=== PATIENT | male | born 1970 | race Caucasian/White ===

== ENCOUNTER → 2017-09-29 | Outpatient (CLI) | payer OTHER ==
[2017-09-29 12:32] VITALS: BP 159/83; PULSE 83; RESP 18
--- NOTE | 2017-09-30 19:14 | P.CONS ---
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, currently on Neurontin and Motrin, and he was treated in the past with Percocet 7.5/325, and he reported that medication management is the only thing that could help his pain, patient denies any focal neurological deficit he denies any fever or night sweats Past Medical History Past Medical History: Pneumonia Additional Past Medical History / Comment(s): BRONCHIACTASIS, MASTOIDITIS, sick sinus syndrome,sinus problems History of Any Multi-Drug Resistant Organisms: None Reported Past Surgical History: Cholecystectomy, Hernia Repair, Orthopedic Surgery, Pacemaker Additional Past Surgical History / Comment(s): multiple knee scopes, umb hernia , had had 4 pacemaker sx;. polyp in throat removed 09/06/17 Past Anesthesia/Blood Transfusion Reactions: No Reported Reaction Type of Cardiac Device: Permanent Pacemaker Device Placement Date:: unk Past Psychological History: No Psychological Hx Reported Smoking Status: Current every day smoker Past Alcohol Use History: None Reported Additional Past Alcohol Use History / Comment(s): started smoking at age 17 down from 2ppd to 2-3 cig per day, declined smoking booklet is slowly quitting Past Drug Use History: None Reported - Past Family History Mother Family Medical History: Cancer Additional Family Medical History / Comment(s): cervical and anal cancer, osteoporosis Father History Unknown: Yes Additional Family Medical History / Comment(s): at age 26 pt not sure what cause was. Medications and Allergies Home Medications Medication Instructions Recorded Confirmed Type Albuterol Inhaler [Ventolin Hfa 1 puff INHALATION DAILY 09/29/17 09/29/17 History Inhaler] Budesonide/Formoterol Fumarate 2 puff INHALATION BID 09/29/17 09/29/17 History [Symbicort 160-4.5 Mcg Inhaler] Fluticasone Nasal [place] [Flonase 1 spray NASAL TID 09/29/17 09/29/17 History Nasal [place]] Furosemide [Lasix] 1 tab PO DAILY 09/29/17 09/29/17 History Gabapentin [Neurontin] 1 tab PO TID 09/29/17 09/29/17 History Ibuprofen [Motrin] 2 tab PO Q8H 09/29/17 09/29/17 History Ipratropium-Albuterol Nebulize 1 puff INHALATION Q2-3H 09/29/17 09/29/17 History [Duoneb 0.5 mg-3 mg/3 ml Soln] Potassium 1 tab PO DAILY 09/29/17 09/29/17 History Prednisolone Acetate/Nepafenac 1 drop BOTH EYES DAILY 09/29/17 09/29/17 History [Prednisolone 1%-Nepafenac 0.1%] Umeclidinium [place] [Incruse 1 puff INHALATION DAILY 09/29/17 09/29/17 History Ellipta] hydrOXYzine HCL 1 tab PO Q8HR 09/29/17 09/29/17 History predniSONE [predniSONE] 1 tab PO DAILY 09/29/17 09/29/17 History traMADol HCl [Ultram] 1 tab PO QID 09/29/17 09/29/17 History Allergies Allergy/AdvReac Type Severity Reaction Status Date / Time No Known Allergies Allergy Verified 09/29/17 12:22 Physical Exam Physical Examinations : 1-Constitutiona : Cooperative , not in acute distress . 2-HEENT : nech ; supple eyes : no ptosis , no icterus, no photophobia . ENT : normal of hearing , normal oropharynx , no Thrush . 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
== END | disposition home or self-care (01) ==
LOC: PNWHC3 11:47
PROVIDERS: ATTEND Specialist
DX: G89.4 Chronic pain syndrome (principal); H70.90 Unspecified mastoiditis, unspecified ear; Q79.4 Prune belly syndrome; J47.9 Bronchiectasis, uncomplicated; I49.5 Sick sinus syndrome; F17.200 Nicotine dependence, unspecified, uncomplicated; Z79.899 Other long term (current) drug therapy; Z79.1 Long term (current) use of non-steroidal anti-inflammatories (NSAID)
CPT/HCPCS: 99211

== ENCOUNTER 2019-01-26 16:52 | Inpatient (IN) | payer MEDICARE, OTHER ==
[2019-01-26] MEDS ORDERED: MORPHINE SULFATE 4 MG/ML SYRINGE IVP STA ×2 (17:41→19:28)
[2019-01-26] MEDS ORDERED: KETOROLAC 30 MG/ML 1 ML VIAL IVP STA (17:41)
--- NOTE | 2019-01-26 17:43 | ED ---
General Adult HPI - General Chief complaint: Recheck/Abnormal Lab/Rx Stated complaint: Infection Time Seen by Provider: 01/26/19 17:10 Source: patient Mode of arrival: ambulatory Limitations: no limitations - History of Present Illness Initial comments: 48-year-old male presenting with left finger wound. Patient states 3 weeks prior he woke up and blacked out with his finger that is now progressed. He states he has been on antibiotics the last 17 days. Those include Bactrim, Keflex, vancomycin, now daptomycin through PICC line in his right arm. He states he presented to Dr. johnson office today for worsening pain in the wound. He was sent here to be evaluated by Ortho hand. He characterizes the pain as now burning one prior which is throbbing. He denies any fevers chills or known injury to the hand. - Related Data Home Medications Medication Instructions Recorded Confirmed Albuterol Inhaler [Ventolin Hfa 1 puff INHALATION DAILY 09/29/17 01/26/19 Inhaler] Budesonide/Formoterol Fumarate 2 puff INHALATION BID 09/29/17 01/26/19 [Symbicort 160-4.5 Mcg Inhaler] DAPTOmycin [Cubicin] 500 mg IV DAILY@1200 01/26/19 01/26/19 Umeclidinium [place] [Incruse 1 puff INHALATION DAILY 01/26/19 01/26/19 Ellipta] Allergies Allergy/AdvReac Type Severity Reaction Status Date / Time No Known Allergies Allergy Verified 01/26/19 17:29 Review of Systems ROS Statement: Those systems with pertinent positive or pertinent negative responses have been documented in the HPI. Review of Systems Constitutional: Denies fever, chills Eyes: Denies change in vision, Denies pain Ears, nose, mouth, throat: Denies headaches, Denies sore throat Cardiovascular: Denies chest pain. Denies palpitations Respiratory: Denies shortness of breath, Denies cough Gastrointestinal: Denies abdominal pain. Denies nausea, vomiting, diarrhea. Genitourinary: Denies hematuria, Denies infections Musculoskeletal: Denies pain, Denies swelling Integumentary: Positive wound Neurological: Denies headache, focal weakness, focal numbness Psychiatric: Denies anxiety, Denies depression Hematologic/Lymphatic: Denies easy bleeding or bruising ROS Other: All systems not noted in ROS Statement are negative. Past Medical History Past Medical History: Pneumonia Additional Past Medical History / Comment(s): BRONCHIACTASIS, MASTOIDITIS, sick sinus syndrome,sinus problems History of Any Multi-Drug Resistant Organisms: None Reported Past Surgical History: Cholecystectomy, Hernia Repair, Orthopedic Surgery, Pacemaker Additional Past Surgical History / Comment(s): multiple knee scopes, umb hernia, had had 4 pacemaker sx;. polyp in throat removed 09/06/17 Past Anesthesia/Blood Transfusion Reactions: No Reported Reaction Type of Cardiac Device: Permanent Pacemaker Device Placement Date:: unk Past Psychological History: No Psychological Hx Reported Smoking Status: Current every day smoker Past Alcohol Use History: None Reported Past Drug Use History: None Reported - Past Family History Mother Family Medical History: Cancer Additional Family Medical History / Comment(s): cervical and anal cancer, oste oporosis Father History Unknown: Yes Additional Family Medical History / Comment(s): at age 26 pt not sure what cause was. General Exam - General Exam Comments Initial Comments: General: Awake, alert, No acute Distress HENT: Normocephalic. Atraumatic Eyes: PERRL. EOMI. No scleral icterus. No injected conjunctiva Neck: Full ROM Chest/Lungs: Clear to auscultation bilaterally. No wheezing, rhonchi, or rales Cardiac: Regular rate, rhythm. No murmurs or rubs Abdomen/GI: Soft, nontender, nondistended. No rebound, guarding, or rigidity. Musculoskeletal: Full ROM. Swelling to the left fifth finger Skin: Erythema and bruising to entire tip of left fifth finger with swelling extending down the finger itself, pain with movement, no purulent drainage. Tenderness along flexor tendon. Neurologic: A/Ox3, no weakness, no sensory deficit, no abnormal gait, no coordin ation deficit Limitations: no limitations Course Vital Signs 01/26/19 01/26/19 16:58 20:04 Temperature 98.3 F Pulse Rate 75 69 Respiratory 16 18 Rate Blood Pressure 130/84 122/61 O2 Sat by Pulse 99 98 Oximetry Medical Decision Making - Medical Decision Making 48-year-old male presenting with left fifth digit infection. Initial exam the p atient is awake, alert, no acute distress. VSS. Patient was sent emergency department by Dr. Carlin , infectious disease physician. Spoke with the admitting physician who is agreeable to plan of admitting the patient to the hospital to be seen by orthopedic hand and continuing his daptomycin. Patient currently stable for transfer to the floor. - Lab Data Result diagrams: 01/26/19 17:55 01/26/19 17:55 Lab Results 01/26/19 01/26/19 Range/Units 17:55 17:55 WBC 15.1 H (3.8-10.6) k/uL RBC 4.69 (4.30-5.90) m/uL Hgb 14.7 (13.0-17.5) gm/dL Hct 44.0 (39.0-53.0) % MCV 93.9 (80.0-100.0) fL MCH 31.3 (25.0-35.0) pg MCHC 33.3 (31.0-37.0) g/dL RDW 12.8 (11.5-15.5) % Plt Count 228 (150-450) k/uL Neutrophils % 72 % Lymphocytes % 18 % Monocytes % 6 % Eosinophils % 3 % Basophils % 1 % Neutrophils # 10.8 H (1.3-7.7) k/uL Lymphocytes # 2.6 (1.0-4.8) k/uL Monocytes # 0.9 (0-1.0) k/uL Eosinophils # 0.5 (0-0.7) k/uL Basophils # 0.1 (0-0.2) k/uL ESR 11 (0-15) mm/hr Sodium 141 (137-145) mmol/L Potassium 4.1 (3.5-5.1) mmol/L Chloride 109 H (98-107) mmol/L Carbon Dioxide 24 (22-30) mmol/L Anion Gap 8 mmol/L BUN 9 (9-20) mg/dL Creatinine 0.87 (0.66-1.25) mg/dL Est GFR (CKD-EPI)AfAm >90 (>60 ml/min/1.73 sqM) Est GFR (CKD-EPI)NonAf >90 (>60 ml/min/1.73 sqM) Glucose 94 (74-99) mg/dL Calcium 9.4 (8.4-10.2) mg/dL C-Reactive Protein 23.0 H (<10.0) mg/L Disposition Clinical Impression: Finger infection Disposition: ADMITTED IP TO THIS HOSP Is patient prescribed a controlled substance at d/c from ED?: No Decision to Admit Reason: Admit from EC Decision Date: 01/26/19 Decision Time: 18:50
[2019-01-26 18:17] LABS: Basophils # (A) 0.1 k/uL (0-0.2); Basophils % (A) 1 %; Eosinophils # (A) 0.5 k/uL (0-0.7); Eosinophils % (A) 3 %; HGB 14.7 gm/dL (13.0-17.5); Lymphocytes # (A) 2.6 k/uL (1.0-4.8); Lymphocytes % (A) 18 %; MCH 31.3 pg (25.0-35.0); MCHC 33.3 g/dL (31.0-37.0); MCV 93.9 fL (80.0-100.0); Mean Platelet Volume 8.1; Monocytes # (A) 0.9 k/uL (0-1.0); Monocytes % (A) 6 %; Neutrophils # (A) 10.8 k/uL (1.3-7.7); Neutrophils % (A) 72 %; Platelet Count 228 k/uL (150-450); RBC 4.69 m/uL (4.30-5.90); RDW 12.8 % (11.5-15.5); WBC 15.1 k/uL (3.8-10.6)
[2019-01-26 18:33] LABS: African American GFR (CKD) >90 (>60 ml/min/1.73 sqM); Anion Gap 8 mmol/L; Blood Urea Nitrogen 9 mg/dL (9-20); Calcium 9.4 mg/dL (8.4-10.2); Carbon Dioxide 24 mmol/L (22-30); Chloride 109 mmol/L (98-107); Glucose 94 mg/dL (74-99); Potassium 4.1 mmol/L (3.5-5.1); Sodium 141 mmol/L (137-145)
[2019-01-26] MEDS ORDERED: NALOXONE 0.4 MG/ML 1 ML VIAL IV PRN (18:43)
[2019-01-26 19:04] LABS: Erythrocyte Sedimentation Rate 11 mm/hr (0-15)
[2019-01-26] MEDS: SYMBICORT 160-4.5 MCG INHALER INHALATION SCH (22:12)
[2019-01-26] MEDS: MORPHINE SULFATE 4 MG/ML SYRINGE IV PRN (22:35)
[2019-01-27 00:39] VITALS: BMI 31.9
[2019-01-27] MEDS: MORPHINE SULFATE 4 MG/ML SYRINGE IV PRN ×5 (01:45→16:58)
[2019-01-27] MEDS: SYMBICORT 160-4.5 MCG INHALER INHALATION SCH ×2 (08:25→19:13)
[2019-01-27] MEDS: IPRATROPIUM-ALBUTEROL 3 ML NEB INHALATION SCH ×4 (08:26→19:13)
[2019-01-27] MEDS: ALBUTEROL NEBULIZED 2.5 MG/3 ML INHALATION SCH (08:28)
[2019-01-27] MEDS: DAPTOmycin 500 MG in SODIUM CHLORIDE 0.9% 50 ML IVPB SCH (11:15)
[2019-01-27] MEDS ORDERED: DAPTOmycin 500 MG VIAL IV SCH (12:00)
--- NOTE | 2019-01-27 17:39 | P.HPIM ---
History of Present Illness H&P Date: 01/27/19 Chief Complaint: Infected left index finger History of presenting complaint: This is a 48-year-old patient of Dr. Hendricks. Chronic stable medical conditions include chronic mastoiditis, permanent pacemaker for sick sinus syndrome, COPD from smoking. About 3 weeks ago patient woke up and felt what was like a mosquito bite on the tip of his index finger. This progressed become painful swollen went down to [facility]. It was incised. Sent home with antibiotics. It swelled up again. Patient went to his family doctor. It was again incised and patient was sent over Bactrim. It swelled of yet again. Patient went to [facility]. Admitted there for 3 days A PICC line and IV vancomycin was given. Patient seen by Dr. Carlin from [place]. It improved but yet again it has swollen up again's painful throbbing. No obvious fever no obvious chills. Patient seen by Dr. Carlin from [place] and sent him to be admitted. Orthopedics was also consulted from the ER. Review of systems: GEN.: None EYES: None HEENT: None NECK: None RESPIRATORY: Some wheezing and shortness of breath CARDIOVASCULAR: None GASTROINTESTINAL: None GENITOURINARY: None MUSCULOSKELETAL: As above LYMPHATICS: None HEMATOLOGICAL: None PSYCHIATRY: None NEUROLOGICAL: None Past medical history: Chronic mastoiditis, chronic sinusitis, sick sinus syndrome with a pacemaker, COPD Social history: Patient is . On disability. Now down to half a pack a day. Smoking for many years. No alcohol Family history: Cervical and anal cancer. Osteoporosis. Physical examination: VITAL SIGNS: 98.3, 75, 16, 130 Tessa 4, 99% room air GENERAL: BMI 32.5, sitting at edge to bed. EYES: Pupils equal. Conjunctiva normal. HEENT: External appearance of nose and ears normal, oral cavity grossly normal. NECK: JVD not raised; masses not palpable. HEART: First and second heart sounds are normal; no edema. LUNGS: Respiratory rate normal; decreased breath sounds, some wheezing. ABDOMEN: Soft, nontender, liver spleen not palpable, no masses palpable. PSYCH: Alert and oriented x3; mood and affect normal. NEUROLOGICAL: Cranial nerves grossly intact; no facial asymmetry, power and sensation grossly intact. LYMPHATICS: No lymph nodes palpable in the axilla and neck EXTREMITIES: Left hand distal index finger discolored tender red with some breakdown of skin, swollen INVESTIGATIONS, reviewed in the clinical context: White count 15.1, hemoglobin 40.7, potassium 4.1, creatinine 0.87 C-reactive protein 23 Assessment: -Left index finger, recurrent abscess with associated cellulitis, having failed outpatient incision and drainage at least 2 times and antibiotics. Patient will need repeat surgery and anesthesia and prolonged antibiotic treatment -Chronic mastoiditis -Chronic permanent pacemaker for sick sinus syndrome -COPD in a current smoker -Chronic nicotine dependence patient cigarette smoker Plan: ID Dr. Carlin was consulted. Orthopedics was consulted. Care was discussed with the patient. Patient will need to go to the OR for opening of the wound and drainage. Patient currently on daptomycin. Bronchodilators have been added. Smoke cessation counseling: This was done with the patient. Nicotine patch will be given. More than 3 minutes was spent on this.. Past Medical History Past Medical History: Pneumonia Additional Past Medical History / Comment(s): BRONCHIACTASIS, MASTOIDITIS, sick sinus syndrome,sinus problems History of Any Multi-Drug Resistant Organisms: None Reported Past Surgical History: Cholecystectomy, Hernia Repair, Orthopedic Surgery, Pacemaker Additional Past Surgical History / Comment(s): multiple knee scopes, umb hernia, had had 4 pacemaker sx;. polyp in throat removed 09/06/17 Past Anesthesia/Blood Transfusion Reactions: No Reported Reaction Type of Cardiac Device: Permanent Pacemaker Device Placement Date:: k Past Psychological History: No Psychological Hx Reported Smoking Status: Current every day smoker Past Alcohol Use History: None Reported Past Drug Use History: None Reported - Past Family History Mother Family Medical History: Cancer Additional Family Medical History / Comment(s): cervical and anal cancer, ost eoporosis Father History Unknown: Yes Additional Family Medical History / Comment(s): at age 26 pt not sure what cause was. Medications and Allergies Home Medications Medication Instructions Recorded Confirmed Type Albuterol Inhaler [Ventolin Hfa 1 puff INHALATION DAILY 09/29/17 01/26/19 History Inhaler] Budesonide/Formoterol Fumarate 2 puff INHALATION BID 09/29/17 01/26/19 History [Symbicort 160-4.5 Mcg Inhaler] DAPTOmycin [Cubicin] 500 mg IV DAILY@1200 01/26/19 01/26/19 History Umeclidinium [place] [Incruse 1 puff INHALATION DAILY 01/26/19 01/26/19 History Ellipta] Allergies Allergy/AdvReac Type Severity Reaction Status Date / Time No Known Allergies Allergy Verified 01/26/19 17:29 Physical Exam Vitals: Vital Signs Temp Pulse Pulse Resp BP BP Pulse Ox 01/27/19 04:40 97.8 F 73 20 102/64 97 01/26/19 22:20 98.3 F 75 20 138/67 97 01/26/19 20:04 69 18 122/61 98 01/26/19 16:58 98.3 F 75 16 130/84 99 Intake and Output 01/26/19 01/27/19 01/27/19 22:59 06:59 14:59 Intake Total 200 240 Balance 200 240 Intake: Oral 200 240 Other: # Voids 1 2 Weight 114.759 kg Results CBC & Chem 7: 01/26/19 17:55 01/26/19 17:55 Labs: Abnormal Lab Results - Last 24 Hours (Table) 01/26/19 01/26/19 Range/Units 17:55 17:55 WBC 15.1 H (3.8-10.6) k/uL Neutrophils # 10.8 H (1.3-7.7) k/uL Chloride 109 H (98-107) mmol/L C-Reactive Protein 23.0 H (<10.0) mg/L Thrombosis Risk Factor Assmnt - Choose All That Apply Any of the Below Risk Factors Present?: Yes Each Factor Represents 1 point: Age 41-60 years, Obesity (BMI >25) Other Risk Factors: No Thrombosis Risk Factor Assessment Total Risk Factor Score: 2 Thrombosis Risk Factor Assessment Level: Low Risk
--- NOTE | 2019-01-27 18:05 | P.CNOR ---
History of Present Illness - HPI Consult date: 01/27/19 Requesting physician: Durga Chavez Consult reason: other History of present illness: Patient is 48 year old male seen at bedside this afternoon, by Dr. Durga Chavez and myself, in consultation for left 5th finger infection. He states he has been dealing with an infection at the tip of his left little finger for a few weeks. He doesnt not recall an injury. He has been on various antibiotics and most recently followed By infectious disease where he has had a picc line in place for 10 days. He is receiving IV antibiotics currently. He denies worsening today. He has no fever or chills. He denies numbness or tingling. He is a smoker. Review of Systems All systems: negative Constitutional: Denies chills, Denies fever Eyes: denies blurred vision, denies pain Ears, nose, mouth and throat: Denies headache, Denies sore throat Cardiovascular: Denies chest pain, Denies shortness of breath Respiratory: Denies cough Gastrointestinal: Denies abdominal pain, Denies diarrhea, Denies nausea, Denies vomiting Musculoskeletal: Denies myalgias Integumentary: Denies pruritus, Denies rash Neurological: Denies numbness, Denies weakness Psychiatric: Denies anxiety, Denies depression Endocrine: Denies fatigue, Denies weight change Past Medical History Past Medical History: Pneumonia Additional Past Medical History / Comment(s): BRONCHIACTASIS, MASTOIDITIS, sick sinus syndrome,sinus problems History of Any Multi-Drug Resistant Organisms: None Reported Past Surgical History: Cholecystectomy, Hernia Repair, Orthopedic Surgery, Pacemaker Additional Past Surgical History / Comment(s): multiple knee scopes, umb hernia, had had 4 pacemaker sx;. polyp in throat removed 09/06/17 Past Anesthesia/Blood Transfusion Reactions: No Reported Reaction Type of Cardiac Device: Permanent Pacemaker Device Placement Date:: unk Past Psychological History: No Psychological Hx Reported Smoking Status: Current every day smoker Past Alcohol Use History: None Reported Past Drug Use History: None Reported - Past Family History Mother Family Medical History: Cancer Additional Family Medical History / Comment(s): cervical and anal cancer, osteoporosis Father History Unknown: Yes Additional Family Medical History / Comment(s): at age 26 pt not sure what cause was. Medications and Allergies Home Medications Medication Instructions Recorded Confirmed Type Albuterol Inhaler [Ventolin Hfa 1 puff INHALATION DAILY 09/29/17 01/26/19 History Inhaler] Budesonide/Formoterol Fumarate 2 puff INHALATION BID 09/29/17 01/26/19 History [Symbicort 160-4.5 Mcg Inhaler] DAPTOmycin [Cubicin] 500 mg IV DAILY@1200 01/26/19 01/26/19 History Umeclidinium [place] [Incruse 1 puff INHALATION DAILY 01/26/19 01/26/19 History Ellipta] Allergies Allergy/AdvReac Type Severity Reaction Status Date / Time No Known Allergies Allergy Verified 01/26/19 17:29 Physical Examination Inspection of the left hand shows a mild periungal hematoma with swelling about the distal left 5th digit. There is no ascending erythema. The is no active drainage. Motor and sensation is intact throughout the hand and digits. The pad is soft. Less than 2 sec cap refill is present. There is pain with passive ROM of the DIP and PIP. 2+ radial pulse is present. Results - Labs Labs: Abnormal Lab Results - Last 24 Hours (Table) 01/26/19 01/26/19 Range/Units 17:55 17:55 WBC 15.1 H (3.8-10.6) k/uL Neutrophils # 10.8 H (1.3-7.7) k/uL Chloride 109 H (98-107) mmol/L C-Reactive Protein 23.0 H (<10.0) mg/L H & H 01/26/19 Range/Units 17:55 Hgb 14.7 (13.0-17.5) gm/dL Hct 44.0 (39.0-53.0) % Result Diagrams: 01/26/19 17:55 01/26/19 17:55 Assessment and Plan (1) Finger infection Narrative/Plan: Patient has been seen by Dr. Durga Chavez. He has recommended warm soapy soaks and massaging the finger nail bed and distal finger. Continue IV antibiotics, elevation and advised him to stop smoking. We will recheck tomorrow and make further recommendations as appropriate. Current Visit: Yes Status: Acute Code(s): L08.9 - LOCAL INFECTION OF THE SKIN AND SUBCUTANEOUS TISSUE, UNSP SNOMED Code(s): 046489550 Time with Patient: Less than 30
[2019-01-27] MEDS: KETOROLAC 30 MG/ML 1 ML VIAL IVP PRN (19:15)
[2019-01-27] MEDS ORDERED: HYDROmorphone 0.5 MG/0.5 ML SYRINGE IVP PRN (19:56)
[2019-01-27] MEDS: HYDROmorphone 1 MG/ML 1 ML SYRINGE IVP PRN (20:14)
--- NOTE | 2019-01-27 23:20 | P.CONS ---
History of Present Illness - Reason for Consult Consult date: 01/27/19 Left fifth fingertip infection Requesting physician: Gonzalez Galloway - Chief Complaint Left fifth fingertip pain swelling redness x few weeks - History of Present Illness Patient is a 48-year-old male who did have a left fifth finger tip pain swelling and redness for the patient had did have a I&D done and to [facility] no cultures or antibiotics and subsequently at [facility] ER with no cultures, patient has been treated with orals Bactrim DS and Keflex without any improvement subsequently was admitted at [facility] and was treated with IV vancomycin patient did show some clinical improvement and during that admission refused any surgical drainage evident by orthopedics subsequently the patient did got a PICC line and was advised to daptomycin 5 mg daily now presenting for 2 weeks, the patient presented to the office yesterday with chief complaints of worsening pain swelling redness to the left fifth fingertip pain described to be throbbing midsternal a friend with no radiation with associated swelling redness on the tip of his left fifth finger with some discoloration patient be complaining of some purulent drainage, and was observed subsequently the patient was sent to [facility] ER to be admitted and evaluated by orthopedic surgery for possible drainage and deep cultures patient has been continued on IV daptomycin and infection disease was consulted for further recommendations regarding antibiotics Review of Systems Positive points has been mentioned in HPI rest of the systems are negative Past Medical History Past Medical History: Pneumonia Additional Past Medical History / Comment(s): BRONCHIACTASIS, MASTOIDITIS, sick sinus syndrome,sinus problems History of Any Multi-Drug Resistant Organisms: None Reported Past Surgical History: Cholecystectomy, Hernia Repair, Orthopedic Surgery, Pacemaker Additional Past Surgical History / Comment(s): multiple knee scopes, umb hernia, had had 4 pacemaker sx;. polyp in throat removed 09/06/17 Past Anesthesia/Blood Transfusion Reactions: No Reported Reaction Type of Cardiac Device: Permanent Pacemaker Device Placement Date:: unk Past Psychological History: No Psychological Hx Reported Smoking Status: Current every day smoker Past Alcohol Use History: None Reported Past Drug Use History: None Reported - Past Family History Mother Family Medical History: Cancer Additional Family Medical History / Comment(s): cervical and anal cancer, osteoporosis Father History Unknown: Yes Additional Family Medical History / Comment(s): at age 26 pt not sure what cause was. Medications and Allergies Home Medications Medication Instructions Recorded Confirmed Type Albuterol Inhaler [Ventolin Hfa 1 puff INHALATION DAILY 09/29/17 01/26/19 History Inhaler] Budesonide/Formoterol Fumarate 2 puff INHALATION BID 09/29/17 01/26/19 History [Symbicort 160-4.5 Mcg Inhaler] DAPTOmycin [Cubicin] 500 mg IV DAILY@1200 01/26/19 01/26/19 History Umeclidinium Kimberly [Incruse 1 puff INHALATION DAILY 01/26/19 01/26/19 History Ellipta] Allergies Allergy/AdvReac Type Severity Reaction Status Date / Time No Known Allergies Allergy Verified 01/26/19 17:29 Physical Exam Vitals: Vital Signs Temp Pulse Pulse Resp BP BP Pulse Ox 01/27/19 04:40 97.8 F 73 20 102/64 97 01/26/19 22:20 98.3 F 75 20 138/67 97 01/26/19 20:04 69 18 122/61 98 01/26/19 16:58 98.3 F 75 16 130/84 99 Intake and Output 01/26/19 01/27/19 01/27/19 22:59 06:59 14:59 Intake Total 200 240 Balance 200 240 Intake: Oral 200 240 Other: # Voids 1 Weight 114.759 kg GENERAL DESCRIPTION: Middle-aged male lying in bed, no distress. No tachypnea or accessory muscle of respiration use. HEENT: Shows Pallor , no scleral icterus. Oral mucous membrane is dry. No phar yngeal erythema or thrush NECK: Trachea central, no thyromegaly. LUNGS: Unlabored breathing. Clear to auscultation anteriorly. No wheeze or crackle. HEART: S1, S2, regular rate and rhythm. No loud murmur ABDOMEN: Soft, no tenderness , guarding or rigidity, no organomegaly EXTREMITIES: Left fifth finger tip did have a blood blister on the dorsum aspect at the base of the nail bed with no evidence of any drainage SKIN: No rash, no masses palpable. NEUROLOGICAL: The patient is awake, alert, oriented x3, mood and affect normal. Results CBC & Chem 7: 01/26/19 17:55 01/26/19 17:55 Labs: Abnormal Lab Results - Last 24 Hours (Table) 01/26/19 01/26/19 Range/Units 17:55 17:55 WBC 15.1 H (3.8-10.6) k/uL Neutrophils # 10.8 H (1.3-7.7) k/uL Chloride 109 H (98-107) mmol/L C-Reactive Protein 23.0 H (<10.0) mg/L Assessment and Plan Assessment: 1-patient with left fifth finger pain swelling redness/cellulitis and possible abscess that has been apparently drained twice with no cultures and did show some initial improvement on IV vancomycin now seem to have worsening despite being on good gram-positive coverage with daptomycin Plan: 1-await surgical I&D to be done by orthopedics and deep cultures 2-daptomycin 500 mg IV piggyback daily we will follow on clinical condition and culture to further adjust medication if needed Thank you for this consultation will follow this patient along with you Time with Patient: Greater than 30
[2019-01-28] MEDS: HYDROmorphone 1 MG/ML 1 ML SYRINGE IVP PRN ×6 (04:48→22:09)
[2019-01-28] MEDS: KETOROLAC 30 MG/ML 1 ML VIAL IVP PRN ×3 (08:07→22:09)
[2019-01-28] MEDS: SYMBICORT 160-4.5 MCG INHALER INHALATION SCH ×2 (08:23→20:20)
[2019-01-28] MEDS: ALBUTEROL NEBULIZED 2.5 MG/3 ML INHALATION SCH (08:30)
[2019-01-28] MEDS: IPRATROPIUM-ALBUTEROL 3 ML NEB INHALATION SCH ×4 (08:30→20:20)
--- NOTE | 2019-01-28 09:53 | P.PN ---
Subjective Progress Note Date: 01/28/19 Principal diagnosis: left finger infection Patient seen at bedside this am. We are following for left little finger infection. We advised to do warm soapy soaks and he was able to express some purulunce last evening. It is improved some today. No new complaints Objective - Vital Signs Vital signs: Vital Signs Temp 97.6 F 01/28/19 05:50 Pulse 52 L 01/28/19 05:50 Resp 16 01/28/19 05:50 BP 98/63 01/28/19 05:50 Pulse Ox 97 01/28/19 05:50 Intake & Output 01/27/19 01/28/19 01/28/19 18:59 06:59 18:59 Intake Total 240 240 Balance 240 240 Intake: Oral 240 240 Other: # Voids 2 1 - Exam Improved erythema, swelling and edema. No ascending erythema. NVI - Constitutional General appearance: Present: no acute distress - Labs CBC & Chem 7: 01/26/19 17:55 01/26/19 17:55 Labs: Microbiology - Last 24 Hours (Table) 01/27/19 17:00 Gram Stain - Preliminary Finger - Left Fifth Wound Culture - Preliminary 01/27/19 17:00 Anaerobic Culture - Preliminary Finger - Left Fifth 01/26/19 18:55 Blood Culture - Preliminary Blood No Growth after 24 hours Assessment and Plan (1) Finger infection Narrative/Plan: Continue warm soapy soaks and massaging the finger nail bed and distal finger. Continue IV antibiotics, elevation and advised him to stop smoking. We will continue to follow and make further recommendations as appropriate. Current Visit: Yes Status: Acute Code(s): L08.9 - LOCAL INFECTION OF THE SKIN AND SUBCUTANEOUS TISSUE, UNSP SNOMED Code(s): 343859778 Time with Patient: Less than 30
[2019-01-28] MEDS: DAPTOmycin 500 MG in SODIUM CHLORIDE 0.9% 50 ML IVPB SCH (12:48)
--- NOTE | 2019-01-28 14:09 | PN ---
PROGRESS NOTE DATE OF SERVICE: 01/28/2019. REASON FOR FOLLOWUP: Left little finger infection with cellulitis. INTERVAL HISTORY: The patient is afebrile. The patient did have spontaneous drainage of the left fifth finger tip abscess. The patient continues to complain of pain to the area. No nausea, no vomiting. No abdominal pain or any diarrhea. PHYSICAL EXAMINATION: Blood pressure is 98/63 with a pulse of 52, temperature 97.6. He is 97% on room air. General description is a middle-aged male up in the chair in no distress. RESPIRATORY SYSTEM: Unlabored breathing. Clear to auscultation anteriorly. HEART: S1, S2. Regular rate and rhythm. ABDOMEN: Soft. No tenderness. Left fifth finger tip has some swelling and redness. No drainage was noticed today. LABS: Cultures are currently pending. No CBC done today. DIAGNOSTIC IMPRESSION AND PLAN: Patient with a left fifth finger tip infection with concern for possible abscess. The patient may benefit from surgical I&D. Orthopedics has been contacted. Waiting for the call back. Continue with the daptomycin. Cultures will be followed. Continue with supportive care. MMODL / IJN: [id number] /
--- NOTE | 2019-01-28 16:30 | P.PN ---
Progress Note - Text Progress Note Date: 01/28/19 Chief Complaint: Infected left little finger History of presenting complaint: This is a 48-year-old patient of Dr. Hendricks. Chronic stable medical conditions include chronic mastoiditis, permanent pacemaker for sick sinus syndrome, COPD from smoking. About 3 weeks ago patient woke up and felt what was like a mosquito bite on the tip of his little finger. This progressed become painful swollen went down to [facility]. It was incised. Sent home with anti biotics. It swelled up again. Patient went to his family doctor. It was again incised and patient was sent over Bactrim. It swelled of yet again. Patient went to [facility]. Admitted there for 3 days A PICC line and IV vancomycin was given. Patient seen by Dr. Carlin from [place]. It improved but yet again it has swollen up again's painful throbbing. No obvious fever no obvious chills. Patient seen by Dr. Carlin from [place] and sent him to be admitted. Orthopedics was also consulted from the ER. Today-seen by ID. He will speak to orthopedics about possible I&D. Patient has pain of the affected finger. Did get some antibiotics pain medications and also soak in warm water. Review of systems: Was done for constitutional, cardiovascular, GI, pulmonary. Extremity relevant finding as above Active Medications Albuterol Sulfate (Ventolin Nebulized) 2.5 mg INHALATION RT-DAILY [facility] Last Admin: 01/28/19 08:30 Dose: Not Given Documented by: Albuterol/Ipratropium (Duoneb 0.5 Mg-3 Mg/3 Ml Soln) 3 ml INHALATION RT-QID [facility] Last Admin: 01/28/19 16:22 Dose: 3 ml Documented by: Budesonide/Formoterol Fumarate (Symbicort 160-4.5 Mcg Inhaler) 2 puff INHALATION RT-BID [facility] Last Admin: 01/28/19 08:23 Dose: 2 puff Documented by: Hydromorphone HCl (Dilaudid) 0.5 mg IVP Q3HR PRN PRN Reason: Pain Hydromorphone HCl (Dilaudid) 1 mg IVP Q3HR PRN PRN Reason: Pain Last Admin: 01/28/19 16:03 Dose: 1 mg Documented by: Daptomycin 500 mg/ Sodium (Chloride) 50 mls @ 100 mls/hr IVPB Q24H [facility] Last Admin: 01/28/19 12:48 Dose: 100 mls/hr Documented by: Ketorolac Tromethamine (Toradol) 15 mg IVP Q6HR PRN PRN Reason: Moderate Pain Stop: 01/31/19 18:44 Last Admin: 01/28/19 15:09 Dose: 15 mg Documented by: Naloxone HCl (Narcan) 0.2 mg IV Q2M PRN PRN Reason: Opioid Reversal Physical examination: VITAL SIGNS: 97.6, 52, 16, 98 x 63, 97% room air GENERAL: BMI 32.5, sitting at edge to bed. EYES: Pupils equal. Conjunctiva normal. HEENT: External appearance of nose and ears normal, oral cavity grossly normal. NECK: JVD not raised; masses not palpable. HEART: First and second heart sounds are normal; no edema. LUNGS: Respiratory rate normal; decreased breath sounds, some wheezing. ABDOMEN: Soft, nontender, liver spleen not palpable, no masses palpable. PSYCH: Alert and oriented x3; mood and affect normal. NEUROLOGICAL: Cranial nerves grossly intact; no facial asymmetry, power and sensation grossly intact. LYMPHATICS: No lymph nodes palpable in the axilla and neck EXTREMITIES: Left hand distal little finger discolored tender red with some breakdown of skin, swollen INVESTIGATIONS, reviewed in the clinical context: White count 15.1, hemoglobin 40.7, potassium 4.1, creatinine 0.87 C-reactive protein 23 Assessment: -Left little finger, recurrent abscess with associated cellulitis, having failed outpatient incision and drainage at least 2 times and antibiotics. Patient will need repeat surgery and anesthesia and prolonged antibiotic treatment -Chronic mastoiditis -Chronic permanent pacemaker for sick sinus syndrome -COPD in a current smoker -Chronic nicotine dependence patient cigarette smoker Plan: Discussed with Dr. Montero from ID. He will discuss with orthopedics reviewed to I&D. This was discussed with the patient. Question were answered. Continue current medication treatment plan.
[2019-01-29] MEDS: HYDROmorphone 1 MG/ML 1 ML SYRINGE IVP PRN ×7 (04:03→22:03)
[2019-01-29] MEDS: KETOROLAC 30 MG/ML 1 ML VIAL IVP PRN ×4 (04:04→22:10)
[2019-01-29] MEDS: IPRATROPIUM-ALBUTEROL 3 ML NEB INHALATION SCH ×4 (07:39→21:45)
[2019-01-29] MEDS: SYMBICORT 160-4.5 MCG INHALER INHALATION SCH ×2 (07:39→21:44)
[2019-01-29] MEDS: ALBUTEROL NEBULIZED 2.5 MG/3 ML INHALATION SCH (07:39)
[2019-01-29] MEDS ORDERED: LIDOCAINE 2% INJ 20 MG/ML (20 ML MDV) SQ ONE (10:00)
[2019-01-29] MEDS: DAPTOmycin 500 MG in SODIUM CHLORIDE 0.9% 50 ML IVPB SCH (11:06)
--- NOTE | 2019-01-29 11:06 | P.PN ---
Subjective Progress Note Date: 01/29/19 Principal diagnosis: left finger infection Patient seen at bedside this am. We are following for left little finger infection. We advised to do warm soapy soaks and he has been able to express some purulence. He doesn't feel it has improved today. He denies any new complaints.he denies fever or chills. Objective - Vital Signs Vital signs: Vital Signs Temp 97.7 F 01/29/19 04:41 Pulse 64 01/29/19 07:55 Resp 18 01/29/19 04:41 BP 134/86 01/29/19 04:41 Pulse Ox 98 01/29/19 04:41 Intake & Output 01/28/19 01/29/19 01/29/19 18:59 06:59 18:59 Intake Total 960 1180 Balance 960 1180 Intake: Oral 960 1180 Other: # Voids 2 1 - Exam There is continued erythema, swelling and edema at the distal portion of the left little finger. There is no active drainage. Neurovascular status is intact with motor and sensation throughout the finger however there is pain with minimal range of motion of the DIP, IP and MCP joints. Less than 1 second capillary refill is present. 2+ radial pulses present. There is no ascending erythema. - Constitutional General appearance: Present: no acute distress - Labs CBC & Chem 7: 01/26/19 17:55 01/26/19 17:55 Labs: Microbiology - Last 24 Hours (Table) 01/26/19 18:55 Blood Culture - Preliminary Blood No Growth after 48 hours Assessment and Plan (1) Finger infection Narrative/Plan: After obtaining informed consent, a decision was made to proceed with I&D at bedside. The left little finger was sterilely prepped with chlorhexidine solution,after which 10 cc of 2% plain lidocaine was injected about the finger w here both the medial and lateral digital nerves were blocked. Anesthesia of the finger was obtained. After which a horizontal incision was made along the lateral aspect of the distal phalanx superior to the nerve and vessels and deep to the bone. Subsequently a longitudinal incision was made at the fat pad of the distal phalanx and deep to the bone. These wounds were expressed where 2 separate cultures were obtained. The patient tolerated the procedure well without complication. He'll continue with warm soapy soaks. Continue with IV antibiotics per infectious disease and medical management. We will continue to follow and make further recommendations as appropriate. Continue warm soapy soaks and massaging the finger nail bed and distal finger. Continue elevation and smoking cessation. Current Visit: Yes Status: Acute Code(s): L08.9 - LOCAL INFECTION OF THE SKIN AND SUBCUTANEOUS TISSUE, UNSP SNOMED Code(s): 976599058 Time with Patient: Greater than 30 (procedure performed)
--- NOTE | 2019-01-29 16:19 | PN ---
PROGRESS NOTE DATE OF SERVICE: 01/29/2019 REASON FOR FOLLOWUP: Left fifth fingertip abscess and cellulitis. INTERVAL HISTORY: The patient is afebrile. The patient is status post bedside debridement of his left fifth fingertip by Orthopedics apparently it was mostly bloody, per the RN. However, the patient said there was pus as well. Culture of the drainage is currently pending. The patient has been complaining of pain, with some improvement with pain medication. No nausea, no vomiting, no abdominal pain, no diarrhea. PHYSICAL EXAMINATION: Blood pressure 104/68 with a pulse of 71, temperature 97.6. He is 97% on room air. General description is a middle-aged male up in the bed in no distress. RESPIRATORY SYSTEM: Unlabored breathing. Clear to auscultation anteriorly. HEART: S1, S2. Regular rate and rhythm. ABDOMEN: Soft. No tenderness. Left fingertip is currently dressed up. No obvious drainage on the dressing. DIAGNOSTIC IMPRESSION AND PLAN: Patient with left fifth fingertip abscess and cellulitis that had been drained in the outpatient setting, after which no cultures were done. Patient has been on daptomycin, without significant improvement and had to be admitted to the hospital. We are waiting for the cultures that were done today to determine his discharge antibiotics. Continue with daptomycin while he is here in the hospital. Continue with supportive care. MMODL / IJN: [id number] /
--- NOTE | 2019-01-29 19:28 | P.PN ---
Progress Note - Text Progress Note Date: 01/29/19 Chief Complaint: Infected left little finger Interval history: This is a 48-year-old patient of Dr. Hendricks. Chronic stable medical conditions include chronic mastoiditis, permanent pacemaker for sick sinus syndrome, COPD from smoking. About 3 weeks ago patient woke up and felt what was like a mosquito bite on the tip of his little finger. This progressed become painful swollen went down to [facility]. It was incised. Sent home with antibiotics. It swelled up again. Patient went to his family doctor. It was again incised and patient was sent over Bactrim. It swelled of yet again. Patient went to [facility]. Admitted there for 3 days A PICC line and IV vancomycin was given. Patient seen by Dr. Carlin from [place]. It improved but yet again it has swollen up again's painful throbbing. No obvious fever no obvious chills. Patient seen by Dr. Carlin from [place] and sent him to be admitted. Today-earlier today, PA from orthopedics did carry out bedside incision and drainage. Warm water soaking was done for that. Cultures are pending. Review of systems: Was done for constitutional, cardiovascular, GI, pulmonary. Extremity relevant finding as above Active Medications Albuterol Sulfate (Ventolin Nebulized) 2.5 mg INHALATION RT-DAILY [facility] Last Admin: 01/29/19 07:39 Dose: 2.5 mg Documented by: Albuterol/Ipratropium (Duoneb 0.5 Mg-3 Mg/3 Ml Soln) 3 ml INHALATION RT-QID [facility] Last Admin: 01/29/19 16:11 Dose: 3 ml Documented by: Budesonide/Formoterol Fumarate (Symbicort 160-4.5 Mcg Inhaler) 2 puff INHALATION RT-BID [facility] Last Admin: 01/29/19 07:39 Dose: 2 puff Documented by: Hydromorphone HCl (Dilaudid) 0.5 mg IVP Q3HR PRN PRN Reason: Pain Hydromorphone HCl (Dilaudid) 1 mg IVP Q3HR PRN PRN Reason: Pain Last Admin: 01/29/19 19:13 Dose: 1 mg Documented by: Daptomycin 500 mg/ Sodium (Chloride) 50 mls @ 100 mls/hr IVPB Q24H [facility] Last Admin: 01/29/19 11:06 Dose: 100 mls/hr Documented by: Ketorolac Tromethamine (Toradol) 15 mg IVP Q6HR PRN PRN Reason: Moderate Pain Stop: 01/31/19 18:44 Last Admin: 01/29/19 15:49 Dose: 15 mg Documented by: Naloxone HCl (Narcan) 0.2 mg IV Q2M PRN PRN Reason: Opioid Reversal Physical examination: VITAL SIGNS: 97.6, 71, 17, 104/68, 97% room air GENERAL: Sitting at the edge of bed, soaking his finger.. EYES: Pupils equal. Conjunctiva normal. HEENT: External appearance of nose and ears normal, oral cavity grossly normal. NECK: JVD not raised; masses not palpable. HEART: First and second heart sounds are normal; no edema. LUNGS: Respiratory rate normal; decreased breath sounds, some wheezing. ABDOMEN: Soft, nontender, liver spleen not palpable, no masses palpable. PSYCH: Alert and oriented x3; mood and affect normal. EXTREMITIES: Left hand distal little finger discolored tender red with some breakdown of skin, swollen INVESTIGATIONS, reviewed in the clinical context: Cultures pending No labs from today C-reactive protein 23 Assessment: -Left little finger, recurrent abscess with associated cellulitis, having failed outpatient incision and drainage at least 2 times and antibiotics. Repeat I&D done today on January 29 at bedside -Chronic mastoiditis -Chronic permanent pacemaker for sick sinus syndrome -COPD in a current smoker -Chronic nicotine dependence patient cigarette smoker Plan: Discussed with Dr. carlin from [place]. Continue current medication treatment plan. Await culture results. Discussed with the patient.
[2019-01-30] MEDS: HYDROmorphone 1 MG/ML 1 ML SYRINGE IVP PRN ×7 (00:57→21:08)
[2019-01-30] MEDS: KETOROLAC 30 MG/ML 1 ML VIAL IVP PRN ×3 (04:15→17:28)
[2019-01-30 06:43] LABS: Basophils # (A) 0.1 k/uL (0-0.2); Basophils % (A) 1 %; Eosinophils # (A) 0.3 k/uL (0-0.7); Eosinophils % (A) 4 %; HCT 42.4 % (39.0-53.0); HGB 13.9 gm/dL (13.0-17.5); Lymphocytes # (A) 1.8 k/uL (1.0-4.8); Lymphocytes % (A) 20 %; MCH 31.1 pg (25.0-35.0); MCHC 32.9 g/dL (31.0-37.0); MCV 94.6 fL (80.0-100.0); Mean Platelet Volume 7.9; Monocytes # (A) 0.7 k/uL (0-1.0); Monocytes % (A) 8 %; Neutrophils # (A) 5.8 k/uL (1.3-7.7); Neutrophils % (A) 66 %; Platelet Count 226 k/uL (150-450); RBC 4.48 m/uL (4.30-5.90); RDW 12.8 % (11.5-15.5); WBC 8.8 k/uL (3.8-10.6)
[2019-01-30 06:59] LABS: African American GFR (CKD) >90 (>60 ml/min/1.73 sqM); Anion Gap 8 mmol/L; Blood Urea Nitrogen 10 mg/dL (9-20); Calcium 9.5 mg/dL (8.4-10.2); Carbon Dioxide 25 mmol/L (22-30); Chloride 107 mmol/L (98-107); Glucose 104 mg/dL (74-99); Potassium 4.7 mmol/L (3.5-5.1); Sodium 140 mmol/L (137-145)
[2019-01-30] MEDS: IPRATROPIUM-ALBUTEROL 3 ML NEB INHALATION SCH ×4 (08:15→20:12)
[2019-01-30] MEDS: SYMBICORT 160-4.5 MCG INHALER INHALATION SCH ×2 (08:15→20:12)
[2019-01-30] MEDS: ALBUTEROL NEBULIZED 2.5 MG/3 ML INHALATION SCH (08:15)
--- NOTE | 2019-01-30 09:58 | P.PN ---
<StephennoaChristina More - Last Filed: 01/30/19 10:54> Subjective Progress Note Date: 01/30/19 Principal diagnosis: Left little finger infection The patient is a 48-year-old male who we've been following for a left little finger infection. The finger was opened at the bedside yesterday and he was in structed to continue warm soaks. The patient appears to be aggravated today because he thinks his finger has not improved since yesterday. He states that the redness and swelling is worse in the finger is "filling back up again." He is currently receiving daptomycin via PICC line and infectious diseases following closely. Cultures are currently pending. Gram stain was negative for organisms. The patient denies fever, chills, rigors, shortness of breath, and chest pain today. Objective - Vital Signs Vital signs: Vital Signs Temp 97.8 F 01/30/19 04:40 Pulse 70 01/30/19 04:40 Resp 18 01/30/19 04:40 BP 110/51 01/30/19 04:40 Pulse Ox 97 01/30/19 04:40 Intake & Output 01/29/19 01/30/19 01/30/19 18:59 06:59 18:59 Intake Total 2020 Balance 2020 Intake: Oral 2020 Other: # Voids 2 2 - Exam The patient is a 48-year-old male who is in no acute distress. He is alert and oriented 3. Exam of the left little finger reveals erythema and swelling to the distal aspect of the finger proximal to the proximal nail bed. There is no active drainage. The 2 incision sites are scabbed over. There is stiffness to the DIP, PIP, and then MCP joints due to pain. Neurological and circulatory status is intact. - Labs CBC & Chem 7: 01/30/19 06:15 01/30/19 06:15 Labs: Abnormal Lab Results - Last 24 Hours (Table) 01/30/19 Range/Units 06:15 Glucose 104 H (74-99) mg/dL Microbiology - Last 24 Hours (Table) 01/29/19 10:25 Gram Stain - Preliminary Finger - Left Fifth Wound Culture - Preliminary 01/27/19 17:00 Anaerobic Culture - Preliminary Finger - Left Fifth 01/26/19 18:55 Blood Culture - Preliminary Blood No Growth after 72 hours 01/27/19 17:00 Gram Stain - Final Finger - Left Fifth Wound Culture - Final Assessment and Plan (1) Finger infection Current Visit: Yes Status: Acute Code(s): L08.9 - LOCAL INFECTION OF THE SKIN AND SUBCUTANEOUS TISSUE, UNSP SNOMED Code(s): 117671954 Plan: The clinical and culture findings were discussed with the patient. Continue IV antibiotics per infectious disease. The patient will be evaluated by Dr. Berg today to give further recommendations. <Shashi Berg - Last Filed: 01/30/19 12:10> Objective - Vital Signs Vital signs: Vital Signs Temp 97.8 F 01/30/19 04:40 Pulse 70 01/30/19 08:00 Resp 18 01/30/19 08:00 BP 110/51 01/30/19 04:40 Pulse Ox 97 01/30/19 04:40 Intake & Output 01/29/19 01/30/19 01/30/19 18:59 06:59 18:59 Intake Total 2019 Balance 2019 Intake: Oral 2019 Other: # Voids 2 2 - Labs CBC & Chem 7: 01/30/19 06:15 01/30/19 06:15 Labs: Abnormal Lab Results - Last 24 Hours (Table) 01/30/19 Range/Units 06:15 Glucose 104 H (74-99) mg/dL Microbiology - Last 24 Hours (Table) 01/29/19 10:25 Gram Stain - Preliminary Finger - Left Fifth Wound Culture - Preliminary 01/27/19 17:00 Anaerobic Culture - Preliminary Finger - Left Fifth 01/26/19 18:55 Blood Culture - Preliminary Blood No Growth after 72 hours 01/27/19 17:00 Gram Stain - Final Finger - Left Fifth Wound Culture - Final Assessment and Plan Plan: Discussed with REGLA Wilson and agree with above. Patient was subsequently seen and examined by myself as well. S: He's very frustrated with the clinical progress of his finger. He said it had been "lanced" 3 times before yesterday and has little hope that it will get better. He admits that yesterday's procedure was the most extensive. He has had substantial difficulty moving the finger due to the pain and is preferentially avoided any use of it. O: Left small finger: Scabbed over incisions along the ulnar nail fold and midline longitudinal incision in the pulp. No drainage. Focal subcutaneous fluid collection under the eponychial and ulnar nail fold. The pulp is bulbous but not discretely fluctuant. It is tender but fairly soft. He is very guarded on exam with any palpation distally only mild tenderness with palpation along the volar and dorsal aspects of the middle phalanx or passive PIP or MCP motion. A: 1. Subacute paronychia/eponychia 2. Nicotine addiction P: I discussed the clinical findings in detail with the patient. I explained that these infections sometimes have a protracted recovery course. I recommended a period of observation to see how finger response to the most recent debridement. Recommended starting warm water soaks with dilute Betadine or peroxide. The patient already has a PICC line and established IV antibiotics set up and would like to go home. I feel this is appropriate. He was encouraged to continue using it and removing as much as possible. He should follow up outpatient and was instructed to call the office for an appointment next week. He expressed understanding and was in agreement with this plan Shashi Berg D.O. [facility]
[2019-01-30] MEDS: DAPTOmycin 500 MG in SODIUM CHLORIDE 0.9% 50 ML IVPB SCH (10:59)
--- NOTE | 2019-01-30 15:46 | P.PN ---
Progress Note - Text Progress Note Date: 01/30/19 Chief Complaint: Infected left little finger Interval history: This is a 48-year-old patient of Dr. Hendricks. Chronic stable medical conditions include chronic mastoiditis, permanent pacemaker for sick sinus syndrome, COPD from smoking. About 3 weeks ago patient woke up and felt what was like a mosquito bite on the tip of his little finger. This progressed become painful swollen went down to [facility]. It was incised. Sent home with antibiotics. It swelled up again. Patient went to his family doctor. It was again incised and patient was sent over Bactrim. It swelled of yet again. Patient went to [facility]. Admitted there for 3 days A PICC line and IV vancomycin was given. Patient seen by Dr. Carlin from OR. It improved but yet again it has swollen up again's painful throbbing. No obvious fever no obvious chills. Patient seen by Dr. Carlin from OR and sent him to be admitted. Today-pain swelling present left little finger. Some improvement. No fever no chills. Cultures are negative to now. Review of systems: Was done for constitutional, cardiovascular, GI, pulmonary. Extremity relevant finding as above Active Medications Albuterol Sulfate (Ventolin Nebulized) 2.5 mg INHALATION RT-DAILY [facility] Last Admin: 01/29/19 07:39 Dose: 2.5 mg Documented by: Albuterol/Ipratropium (Duoneb 0.5 Mg-3 Mg/3 Ml Soln) 3 ml INHALATION RT-QID [facility] Last Admin: 01/29/19 16:11 Dose: 3 ml Documented by: Budesonide/Formoterol Fumarate (Symbicort 160-4.5 Mcg Inhaler) 2 puff INHALATION RT-BID [facility] Last Admin: 01/29/19 07:39 Dose: 2 puff Documented by: Hydromorphone HCl (Dilaudid) 0.5 mg IVP Q3HR PRN PRN Reason: Pain Hydromorphone HCl (Dilaudid) 1 mg IVP Q3HR PRN PRN Reason: Pain Last Admin: 01/29/19 19:13 Dose: 1 mg Documented by: Daptomycin 500 mg/ Sodium (Chloride) 50 mls @ 100 mls/hr IVPB Q24H [facility] Last Admin: 01/29/19 11:06 Dose: 100 mls/hr Documented by: Ketorolac Tromethamine (Toradol) 15 mg IVP Q6HR PRN PRN Reason: Moderate Pain Stop: 01/31/19 18:44 Last Admin: 01/29/19 15:49 Dose: 15 mg Documented by: Naloxone HCl (Narcan) 0.2 mg IV Q2M PRN PRN Reason: Opioid Reversal Physical examination: VITAL SIGNS: 98, 71, 17, 118/67, 97% room air GENERAL: Sitting at the edge of bed, comfortable EYES: Pupils equal. Conjunctiva normal. HEENT: External appearance of nose and ears normal, oral cavity grossly normal. NECK: JVD not raised; masses not palpable. HEART: First and second heart sounds are normal; no edema. LUNGS: Respiratory rate normal; decreased breath sounds, some wheezing. ABDOMEN: Soft, nontender, liver spleen not palpable, no masses palpable. PSYCH: Alert and oriented x3; mood and affect normal. EXTREMITIES: Left hand distal little finger discolored tender red with some breakdown of skin, swollen INVESTIGATIONS, reviewed in the clinical context: White count 8.8 potassium 4.7 Previous labs Cultures pending C-reactive protein 23 Assessment: -Left little finger, recurrent abscess with associated cellulitis, having failed outpatient incision and drainage at least 2 times and antibiotics. Repeat I&D done on January 29 at bedside -Chronic mastoiditis -Chronic permanent pacemaker for sick sinus syndrome -COPD in a current smoker -Chronic nicotine dependence patient cigarette smoker Plan: Discussed with Dr. Montero from ID on the phone. We agree that he to continue the antibiotics and take a final determination tomorrow or by Friday to see if further open 90 has to be carried out on not. This was discussed with the patient. Continue current antibiotics.
[2019-01-31] MEDS: HYDROmorphone 1 MG/ML 1 ML SYRINGE IVP PRN ×7 (03:30→22:44)
[2019-01-31] MEDS: KETOROLAC 30 MG/ML 1 ML VIAL IVP PRN ×3 (03:30→16:39)
[2019-01-31] MEDS: SYMBICORT 160-4.5 MCG INHALER INHALATION SCH ×2 (07:50→20:02)
[2019-01-31] MEDS: ALBUTEROL NEBULIZED 2.5 MG/3 ML INHALATION SCH (07:50)
[2019-01-31] MEDS: IPRATROPIUM-ALBUTEROL 3 ML NEB INHALATION SCH ×4 (08:05→20:02)
--- NOTE | 2019-01-31 09:52 | P.PN ---
Subjective Progress Note Date: 01/31/19 Principal diagnosis: Left little finger infection The patient is a 48-year-old male who we've been following for a left little finger infection. The finger was opened at the bedside on Friday and he was instructed to continue warm soaks. We changed to soaks to q2 hours with be tadine yesterday. He has been working on ROM of the finger as well. He states that the redness and swelling continues to worsen and the finger is "filling back up again." He is currently receiving daptomycin via PICC line and infectious diseases following closely. Cultures are currently negative. Gram stain was negative for organisms. The patient denies fever, chills, rigors, shortness of breath, and chest pain today. Objective - Vital Signs Vital signs: Vital Signs Temp 98.3 F 01/31/19 05:00 Pulse 60 01/31/19 08:06 Resp 16 01/31/19 05:00 BP 100/62 01/31/19 05:00 Pulse Ox 91 L 01/31/19 05:00 Intake & Output 01/30/19 01/31/19 01/31/19 18:59 06:59 18:59 Intake Total 1130 2190 Balance 1130 2190 Intake: Intake, IV Titration 50 Amount DAPTOmycin 500 mg In 50 Sodium Chloride 0.9% 50 ml @ 100 mls/hr IVPB Q24H [facility] Rx#:[id number] Oral 1080 2190 Other: # Voids 3 2 - Exam The patient is a 48-year-old male who is in no acute distress. He is alert and oriented 3. Exam of the left little finger reveals erythema and swelling to the distal aspect of the finger proximal to the proximal nail bed. There is no active drainage. The 2 incision sites are scabbed over. There is stiffness to the DIP, PIP, and then MCP joints due to pain. Neurological and circulatory status is intact. - Labs CBC & Chem 7: 01/30/19 06:15 01/30/19 06:15 Labs: Microbiology - Last 24 Hours (Table) 01/26/19 18:55 Blood Culture - Preliminary Blood No Growth after 96 hours 01/29/19 10:25 Gram Stain - Preliminary Finger - Left Fifth Wound Culture - Preliminary Assessment and Plan (1) Finger infection Current Visit: Yes Status: Acute Code(s): L08.9 - LOCAL INFECTION OF THE SKIN AND SUBCUTANEOUS TISSUE, UNSP SNOMED Code(s): 640573270 Plan: The clinical and culture findings were discussed with the patient. Continue IV antibiotics per infectious disease. Continue warm water and betadine soaks every 2 hours and work on ROM of the finger. We will await infectious disease recommendations today. We will continue to follow the patient closely.
[2019-01-31] MEDS: DAPTOmycin 500 MG in SODIUM CHLORIDE 0.9% 50 ML IVPB SCH (12:42)
--- NOTE | 2019-01-31 15:33 | P.PN ---
Progress Note - Text Progress Note Date: 01/31/19 Chief Complaint: Infected left little finger Interval history: This is a 48-year-old patient of Dr. Hendricks. Chronic stable medical conditions include chronic mastoiditis, permanent pacemaker for sick sinus syndrome, COPD from smoking. About 3 weeks ago patient woke up and felt what was like a mosquito bite on the tip of his little finger. This progressed become painful swollen went down to [facility]. It was incised. Sent home with antibiotics. It swelled up again. Patient went to his family doctor. It was again incised and patient was sent over Bactrim. It swelled of yet again. Patient went to [facility]. Admitted there for 3 days A PICC line and IV vancomycin was given. Patient seen by Dr. Carlin from ID. It improved but yet again it has swollen up again's painful throbbing. No obvious fever no obvious chills. Patient seen by Dr. Carlin from ID and sent him to be admitted. Today-still having significant swelling discoloration of the left little finger. Getting antibiotics. Being followed by ID and surgery.. Review of systems: Was done for constitutional, cardiovascular, GI, pulmonary. Extremity, relevant finding as above Active Medications Albuterol Sulfate (Ventolin Nebulized) 2.5 mg INHALATION RT-DAILY [facility] Last Admin: 01/31/19 07:50 Dose: 2.5 mg Documented by: Albuterol/Ipratropium (Duoneb 0.5 Mg-3 Mg/3 Ml Soln) 3 ml INHALATION RT-QID [facility] Last Admin: 01/31/19 14:53 Dose: 3 ml Documented by: Budesonide/Formoterol Fumarate (Symbicort 160-4.5 Mcg Inhaler) 2 puff INHALATION RT-BID [facility] Last Admin: 01/31/19 07:50 Dose: 2 puff Documented by: Hydromorphone HCl (Dilaudid) 0.5 mg IVP Q3HR PRN PRN Reason: Pain Hydromorphone HCl (Dilaudid) 1 mg IVP Q3HR PRN PRN Reason: Pain Last Admin: 01/31/19 13:38 Dose: 1 mg Documented by: Daptomycin 500 mg/ Sodium (Chloride) 50 mls @ 100 mls/hr IVPB Q24H [facility] Last Admin: 01/31/19 12:42 Dose: 100 mls/hr Documented by: Ketorolac Tromethamine (Toradol) 15 mg IVP Q6HR PRN PRN Reason: Moderate Pain Stop: 01/31/19 18:44 Last Admin: 01/31/19 10:15 Dose: 15 mg Documented by: Naloxone HCl (Narcan) 0.2 mg IV Q2M PRN PRN Reason: Opioid Reversal Physical examination: VITAL SIGNS: 98.1, 64, 16, 131 x 77, 98% room air GENERAL: Sitting up EYES: Pupils equal. Conjunctiva normal. HEENT: External appearance of nose and ears normal, oral cavity grossly normal. NECK: JVD not raised; masses not palpable. HEART: First and second heart sounds are normal; no edema. LUNGS: Respiratory rate normal; decreased breath sounds, some wheezing. ABDOMEN: Soft, nontender, liver spleen not palpable, no masses palpable. PSYCH: Alert and oriented x3; mood and affect normal. EXTREMITIES: Left hand distal little finger discolored tender red with some breakdown of skin, swollen INVESTIGATIONS, reviewed in the clinical context: No labs from today Previous labs Cultures negative C-reactive protein 23 Assessment: -Left little finger, recurrent abscess with associated cellulitis, having failed outpatient incision and drainage at least 2 times and antibiotics. Repeat I&D done on January 29 at bedside, still slow to respond -Chronic mastoiditis -Chronic permanent pacemaker for sick sinus syndrome -COPD in a current smoker -Chronic nicotine dependence patient cigarette smoker Plan: Continue the antibiotics. We'll await further input from ID and surgery. Patient may still benefit from taken to the OR under anesthesia and for the washing of the joint and distal finger carried out.
--- NOTE | 2019-02-01 00:05 | PN ---
PROGRESS NOTE DATE OF SERVICE: 01/31/2019. REASON FOR FOLLOWUP: Left 5th fingertip infection. INTERVAL HISTORY: The patient is currently afebrile. The patient continues to complain of pain to the left 5th fingertip area. Complaining of to be throbbing and hard for him even to soak it in the washroom. The patient did say that he did have some occasional drainage, but then it fills up right away. No chest pain, shortness of breath or cough. No abdominal pain. No diarrhea. PHYSICAL EXAMINATION: Blood pressure 107/68 with a pulse of 75, temperature 98.2. He is 97% on room air; General description is a middle aged male up in the bed in no distress. Respiratory system: Unlabored breathing. Clear to auscultation anteriorly. Heart S1, S2. Regular rate and rhythm. Abdomen soft. No tenderness. Left 5th fingertip, mostly swelling and redness at the base of the nail. No drainage was noticed. LABS: White count is 8.8, creatinine is 1.2. The 01/27 and 01/29 culture has been negative so far. DIAGNOSTIC IMPRESSION AND PLAN: Patient with left 5th fingertip abscess and cellulitis failing outpatient therapy, status post bedside debridement x3. The patient may benefit from OR drainage and deep cultures. Continue with empiric daptomycin. Monitor clinical course closely. Continue supportive care. MMODL / IJN: [id number] /
[2019-02-01] MEDS: HYDROmorphone 1 MG/ML 1 ML SYRINGE IVP PRN ×7 (01:49→23:30)
[2019-02-01] MEDS: ALBUTEROL NEBULIZED 2.5 MG/3 ML INHALATION SCH (08:21)
[2019-02-01] MEDS: SYMBICORT 160-4.5 MCG INHALER INHALATION SCH ×2 (08:21→20:39)
[2019-02-01] MEDS: IPRATROPIUM-ALBUTEROL 3 ML NEB INHALATION SCH ×4 (08:32→20:40)
--- NOTE | 2019-02-01 09:30 | P.PN ---
<StephennoaChristina More - Last Filed: 02/01/19 12:15> Subjective Progress Note Date: 02/01/19 Principal diagnosis: Left little finger infection The patient is a 48-year-old male who we've been following for a left little finger infection. The finger was opened at the bedside on Friday and he was in structed to continue warm soaks. We changed to soaks to q2 hours with betadine yesterday. He has been working on ROM of the finger as well. He states that the redness and swelling continues to worsen and the finger keep "filling back up again." He is currently receiving daptomycin via PICC line and infectious diseases following closely. Cultures are currently negative. The patient denies fever, chills, rigors, shortness of breath, and chest pain today. Objective - Vital Signs Vital signs: Vital Signs Temp 97.8 F 02/01/19 05:00 Pulse 80 02/01/19 08:32 Resp 16 02/01/19 05:00 BP 129/72 02/01/19 05:00 Pulse Ox 99 02/01/19 05:00 Intake & Output 01/31/19 02/01/19 02/01/19 18:59 06:59 18:59 Intake Total 1180 Balance 1180 Intake: Oral 1180 Other: # Voids 3 2 - Exam The patient is a 48-year-old male who is in no acute distress. He is alert and oriented 3. Exam of the left little finger reveals erythema and swelling to the distal aspect of the finger proximal to the proximal nail bed. There is no active drainage. The 2 incision sites are scabbed over. There is stiffness to the DIP, PIP, and then MCP joints due to pain. Neurological and circulatory status is intact. - Labs CBC & Chem 7: 01/30/19 06:15 01/30/19 06:15 Labs: Microbiology - Last 24 Hours (Table) 01/27/19 17:00 Anaerobic Culture - Final Finger - Left Fifth 01/26/19 18:55 Blood Culture - Preliminary Blood No Growth after 120 hours 01/29/19 10:25 Gram Stain - Final Finger - Left Fifth Wound Culture - Final Assessment and Plan (1) Finger infection Current Visit: Yes Status: Acute Code(s): L08.9 - LOCAL INFECTION OF THE SKIN AND SUBCUTANEOUS TISSUE, UNSP SNOMED Code(s): 126471082 Plan: The clinical and culture findings were discussed with the patient. Continue IV antibiotics per infectious disease. Continue warm water and betadine soaks every 2 hours and work on ROM of the finger. The patient will undergo an I&D of the left little finger this afternoon with Dr. Shashi Berg. He will remain NPO. <Shashi Berg A - Last Filed: 02/01/19 18:41> Objective - Vital Signs Vital signs: Vital Signs Temp 98.1 F 02/01/19 11:57 Pulse 84 02/01/19 11:57 Resp 16 02/01/19 11:57 BP 151/82 02/01/19 11:57 Pulse Ox 96 02/01/19 11:57 Intake & Output 01/31/19 02/01/19 02/01/19 18:59 06:59 18:59 Intake Total 1180 50 Balance 1180 50 Intake: Intake, IV Titration 50 Amount DAPTOmycin 500 mg In 50 Sodium Chloride 0.9% 50 ml @ 100 mls/hr IVPB Q24H [facility] Rx#:[id number] Oral 1180 Other: # Voids 3 2 - Labs CBC & Chem 7: 01/30/19 06:15 01/30/19 06:15 Labs: Microbiology - Last 24 Hours (Table) 01/27/19 17:00 Anaerobic Culture - Final Finger - Left Fifth 01/26/19 18:55 Blood Culture - Preliminary Blood No Growth after 120 hours Assessment and Plan Plan: Discussed with REGLA Wilson and agree with above. Patient was subsequently seen and examined by myself as well. S: He does not feel the finger has improved. In fact, he feels the pain has worsened. This is still localized primarily to the tip of the finger with milder pain in the middle and proximal phalanges. O: Prominent fluctuance under the eponychial fold and ulnar lateral nail fold. The pulp is moderately tender to palpation but not tense. The previous bedside I&D incisions have closed and there is no drainage. A: 1. Subacute eponychial/paronychial infection of left small finger P: Finger has failed to show clinical improvement with bedside I&D and IV antibiotics. Reviewed treatment options with the patient. Recommended a formal I&D in the operating room. Risks and benefits were reviewed. He expressed understanding and wished to proceed with surgery. Shashi Berg D.O. [facility]
[2019-02-01] MEDS: DAPTOmycin 500 MG in SODIUM CHLORIDE 0.9% 50 ML IVPB SCH (10:59)
--- NOTE | 2019-02-01 15:25 | XR ---
EXAMINATION TYPE: XR hand complete LT DATE OF EXAM: 02/01/2019 CLINICAL HISTORY: Infection in the left fifth finger. TECHNIQUE: Frontal, lateral and oblique images of the left hand are obtained. COMPARISON: None. FINDINGS: There is lucency and subtle erosion of the ulnar aspect of the base of the fifth distal ph alanx. There is diffuse soft tissue swelling of the fifth digit of the left hand. There is no acute f racture/dislocation evident in the left hand. The joint spaces in the left hand appear aligned with m inimal joint space narrowing in the distal interphalangeal joints and first carpometacarpal joint. No radiopaque foreign body is seen. IMPRESSION: 1. No acute fracture or dislocation in the left hand. 2. Findings suggesting osteomyelitis of the base of the fifth distal phalanx at its ulnar aspect.
--- NOTE | 2019-02-01 17:15 | PN ---
PROGRESS NOTE DATE OF SERVICE: 02/01/2019. REASON FOR FOLLOWUP: Left fifth finger infection. INTERVAL HISTORY: The patient is currently afebrile. The patient has been breathing comfortably. The patient denies having any chest pain or cough. The patient continues to complain of pain to the fingertip. There is no drainage. No chest pain. No nausea, vomiting, abdominal pain or diarrhea. PHYSICAL EXAMINATION: Blood pressure 151/82 with a pulse of 84, temperature 98.1. He is 96% on room air. General description is a middle-aged male up in the bed in no distress. RESPIRATORY SYSTEM: Unlabored breathing. Clear to auscultation anteriorly. HEART: S1, S2. Regular rate and rhythm. ABDOMEN: Soft. No tenderness. Left fingertip remains slightly swollen. No drainage was noted. LABS: No new labs have been obtained today. Cultures have been negative so far. DIAGNOSTIC IMPRESSION AND PLAN: Patient with left fifth fingertip infection which has been drained. Cultures have been negative so far. The patient did have reaccumulation of fluid and may benefit from more drainage and deep cultures. Will obtain x-rays. Discontinue daptomycin, as no resistant organism has been grown. However, the patient is on Rocephin 2 grams daily. Continue supportive care. MMODL / IJN: [id number] /
[2019-02-01] MEDS ORDERED: IV FLUID CONTINUATION 900 ML IV ONE (18:37)
[2019-02-01] MEDS ORDERED: LIDOCAINE 1% INJ 10MG/ML (20 ML MDV) SQ ONE (18:37)
[2019-02-01] MEDS ORDERED: PROPOFOL 10 MG/ML 20 ML VIAL IV ONE (18:37)
[2019-02-01] MEDS ORDERED: LIDOCAINE 1% INJ 10MG/ML (20 ML MDV) ONE (18:37)
[2019-02-01] MEDS ORDERED: fentaNYL (PF) 50 MCG/ML 2 ML AMP ONE (18:37)
[2019-02-01] MEDS ORDERED: MIDAZOLAM 2 MG/2 ML VIAL ONE (18:37)
[2019-02-01] MEDS ORDERED: HYDROmorphone (PF) 1 MG/ML ONE (18:37)
[2019-02-01] MEDS ORDERED: BUPIVACAIN-EPI 0.5%-1:200,000 30 ML VIAL SQ ONE (18:37)
--- NOTE | 2019-02-01 19:55 | P.OP ---
Date of Procedure: 02/01/19 Preoperative Diagnosis: Left small finger paronychia/eponychia Postoperative Diagnosis: Left small finger paronychia/eponychia Procedure(s) Performed: 1. Incision and drainage of left small finger paronychia/eponychia Anesthesia: MAC, local Surgeon: Shashi Berg Estimated Blood Loss (ml): 1 Pathology: other (culture swab) Condition: stable Disposition: PACU Indications for Procedure: The patient is a 48-year-old male who failed multiple bedside I&D's and IV antibiotic treatment for a left small finger paronychial infection. Formal surgical debridement was recommended. Risks and benefits were reviewed including (but not limited to) risk of bleeding, injury to neurovascular structures or nailbed, persistent infection and possible need for additional surgery. The patient expressed understanding, acceptance of these risks and wished to proceed with surgery. Consent forms were signed. The surgical site was confirmed and marked. Description of Procedure: The patient was positioned supine with the operative limb on an arm board. Monitored anesthesia was administered uneventfully. The left upper extremity was then prepped and draped in standard, sterile fashion. A time-out was performed, confirming patient identifiers, the operative side, site and the procedure to be performed: all team members expressed agreement. Local anesthetic without epinephrine was injected in a digital block for supplemental anesthesia. A strip of the Esmarch was clamped at the base of the finger as a tourniquet. Loupe magnification was used throughout the case for optimum visualization. The previous the made incision along the ulnar nail fold was sharply reopened and extended proximally along the edge of the eponychium. A tiny drop of purulent fluid was encountered under the scab but none from the deep aspect of the wound or under the eponychium. Culture swab from the wound was obtained. The wound was explored with a mosquito hemostat and the septae in the pulp were bluntly divided. The hemostat was passed from the ulnar wound and out the volar wound. A separate incision was made along the radial nail fold and eponychium. Blunt subcutaneous dissection was performed, connecting the two wounds. A [place] was inserted under the nail plate but this was found to be firmly adherent. No fluid was expressed with firm pressure on the nail plate. the wounds were copiously irrigated with normal saline using a syringe and angiocatheter. The tourniquet was released after 18 minutes. There was appropriate bleeding from the open wounds. Good hemostasis was obtained with held pressure. A small strip of the Esmarch was cut and inserted into the ulnar wound as a drain and passed through the palmar wound. A separate strip was inserted into the radial wound. Sterile dressings of Adaptic, 4 x 4's, Terrence and Coban were applied. All sponge, needle and instrument counts were correct at the end of the case. The patient tolerated the procedure well. He was taken to recovery in stable condition. The patient will be returned to the floor for IV antibiotics and continued observation.
--- NOTE | 2019-02-01 22:00 | P.PN ---
Progress Note - Text Progress Note Date: 02/01/19 Chief Complaint: Infected left little finger Interval history: This is a 48-year-old patient of Dr. Hendricks. Chronic stable medical conditions include chronic mastoiditis, permanent pacemaker for sick sinus syndrome, COPD from smoking. About 3 weeks ago patient woke up and felt what was like a mosquito bite on the tip of his little finger. This progressed become painful swollen went down to [facility]. It was incised. Sent home with antibiotics. It swelled up again. Patient went to his family doctor. It was again incised and patient was sent over Bactrim. It swelled of yet again. Patient went to [facility]. Admitted there for 3 days A PICC line and IV vancomycin was given. Patient seen by Dr. Carlin from [place]. It improved but yet again it has swollen up again's painful throbbing. No obvious fever no obvious chills. Patient seen by Dr. Carlin from [place] and sent him to be admitted. Today-saw the patient earlier today. Waiting for an open I&D per orthopedics. Some improvement in the nail bed. Does still bit red a bit less pain. No fever no chills.. Review of systems: Was done for constitutional, cardiovascular, GI, pulmonary. Extremity, relevant finding as above Active Medications Albuterol Sulfate (Ventolin Nebulized) 2.5 mg INHALATION RT-DAILY [facility] Last Admin: 02/01/19 08:21 Dose: 2.5 mg Documented by: Albuterol/Ipratropium (Duoneb 0.5 Mg-3 Mg/3 Ml Soln) 3 ml INHALATION RT-QID [facility] Last Admin: 02/01/19 20:40 Dose: Not Given Documented by: Budesonide/Formoterol Fumarate (Symbicort 160-4.5 Mcg Inhaler) 2 puff INHALATION RT-BID [facility] Last Admin: 02/01/19 20:39 Dose: 2 puff Documented by: Hydromorphone HCl (Dilaudid) 0.5 mg IVP Q3HR PRN PRN Reason: Pain Hydromorphone HCl (Dilaudid) 1 mg IVP Q3HR PRN PRN Reason: Pain Last Admin: 02/01/19 20:06 Dose: 1 mg Documented by: Ceftriaxone Sodium 2 gm/ (Sodium Chloride) 50 mls @ 100 mls/hr IVPB Q24HR [facility] Last Admin: 02/01/19 15:41 Dose: 100 mls/hr Documented by: Naloxone HCl (Narcan) 0.2 mg IV Q2M PRN PRN Reason: Opioid Reversal Physical examination: VITAL SIGNS: 98.1, 84, 16, 1 51 x 82, 96% GENERAL: Sitting up, at the edge of the bed EYES: Pupils equal. Conjunctiva normal. HEENT: External appearance of nose and ears normal, oral cavity grossly normal. NECK: JVD not raised; masses not palpable. HEART: First and second heart sounds are normal; no edema. LUNGS: Respiratory rate normal; decreased breath sounds, some wheezing. ABDOMEN: Soft, nontender, liver spleen not palpable, no masses palpable. PSYCH: Alert and oriented x3; mood and affect normal. EXTREMITIES: Left hand distal little finger discolored tender red with some breakdown of skin, a bit less swollen INVESTIGATIONS, reviewed in the clinical context: No labs from today Previous labs Cultures negative C-reactive protein 23 Assessment: -Left little finger, recurrent abscess with associated cellulitis, having failed outpatient incision and drainage at least 2 times and antibiotics. Repeat I&D done on January 29 at bedside, still slow to respond -Chronic mastoiditis -Chronic permanent pacemaker for sick sinus syndrome -COPD in a current smoker -Chronic nicotine dependence patient cigarette smoker Plan: -Spoke to from ID. He will be discussing with orthopedics about taking the patient to or for open I&D. Patient did go down for the same later in the day. Await further input
[2019-02-02] MEDS: HYDROmorphone 1 MG/ML 1 ML SYRINGE IVP PRN ×4 (02:31→11:35)
[2019-02-02 04:49] VITALS: BP 118/68; PULSE 55; RESP 20; TEMP 98.4
[2019-02-02] MEDS: SYMBICORT 160-4.5 MCG INHALER INHALATION SCH (07:58)
[2019-02-02] MEDS: ALBUTEROL NEBULIZED 2.5 MG/3 ML INHALATION SCH (08:00)
[2019-02-02] MEDS: IPRATROPIUM-ALBUTEROL 3 ML NEB INHALATION SCH ×3 (08:00→15:38)
[2019-02-02] MEDS ORDERED: HYDROcodone/APAP 7.5-325MG 1 EACH TAB PO PRN ×2 (08:09)
--- NOTE | 2019-02-02 08:38 | P.PN ---
<StephennoaChristina J - Last Filed: 02/02/19 08:32> Subjective Progress Note Date: 02/02/19 Principal diagnosis: Left little finger infection The patient is a 48-year-old male who we've been following for a left little finger infection. He underwent an I&D late yesterday by Dr. Berg. The p atient states his pain is pretty severe this morning. He is currently receiving Dilaudid. New cultures are pending. He is currently receiving daptomycin via PICC line and infectious disease is following closely. The patient denies fever, chills, rigors, shortness of breath, and chest pain today. Objective - Vital Signs Vital signs: Vital Signs Temp 98.4 F 02/02/19 04:48 Pulse 55 L 02/02/19 04:48 Resp 20 02/02/19 04:48 BP 118/68 02/02/19 04:48 Pulse Ox 94 L 02/02/19 04:48 Intake & Output 02/01/19 02/02/19 02/02/19 18:59 06:59 18:59 Intake Total 250 1230 Output Total 1 Balance 250 1229 Intake: IV 200 50 Intake, IV Titration 50 Amount DAPTOmycin 500 mg In 50 Sodium Chloride 0.9% 50 ml @ 100 mls/hr IVPB Q24H [facility] Rx#:[id number] Oral 1180 Output: Estimated Blood Loss 1 Other: Voiding Method Toilet # Voids 2 - Exam The patient is a 48-year-old male who is in no acute distress. He is alert and oriented 3. He was examined while ambulating in the hallway. Dressing is clean, dry, and intact. Able to wiggle finger slightly within dressing and he is able to move his other fingers on the left hand. Sensation and circulatory sta tus is intact. - Labs CBC & Chem 7: 01/30/19 06:15 01/30/19 06:15 Labs: Microbiology - Last 24 Hours (Table) 01/26/19 18:55 Blood Culture - Final Blood No Growth after 144 hours Assessment and Plan (1) Finger infection Current Visit: Yes Status: Acute Code(s): L08.9 - LOCAL INFECTION OF THE SKIN AND SUBCUTANEOUS TISSUE, UNSP SNOMED Code(s): 271606900 Plan: The clinical findings were discussed with the patient. Continue IV antibiotics per infectious disease. [place] 7.5mg will be ordered and continue Dilaudid only if needed. Dr. eBrg will see the patient later today and perform a dressing change. We will continue to follow the patient closely. <Shashi Berg - Last Filed: 02/02/19 12:24> Objective - Vital Signs Vital signs: Vital Signs Temp 98.4 F 02/02/19 04:48 Pulse 55 L 02/02/19 04:48 Resp 20 02/02/19 04:48 BP 118/68 02/02/19 04:48 Pulse Ox 94 L 02/02/19 04:48 Intake & Output 02/01/19 02/02/19 02/02/19 18:59 06:59 18:59 Intake Total 250 1230 Output Total 1 Balance 250 1229 Intake: IV 200 50 Intake, IV Titration 50 Amount DAPTOmycin 500 mg In 50 Sodium Chloride 0.9% 50 ml @ 100 mls/hr IVPB Q24H [facility] Rx#:[id number] Oral 1180 Output: Estimated Blood Loss 1 Other: Voiding Method Toilet Toilet # Voids 2 - Labs CBC & Chem 7: 01/30/19 06:15 01/30/19 06:15 Labs: Microbiology - Last 24 Hours (Table) 02/01/19 19:19 Wound Culture - Preliminary Finger - Left Fifth 02/01/19 19:19 Fungal Culture - Preliminary Finger - Left Fifth 02/01/19 19:19 Anaerobic Culture - Preliminary Finger - Left Fifth 01/26/19 18:55 Blood Culture - Final Blood No Growth after 144 hours Assessment and Plan Plan: Discussed with REGLA Wilson and agree with above. Patient was subsequently seen and examined by myself as well. S: He states the digital block wore off around 2 AM and he is been in significant pain since then. The Dilaudid gives relief for about an hour and the [place] only takes the edge off slightly. He has been trying to move the finger as much as possible. O: The dressings were removed. The drain on the radial side came off with the dressings. The other drain is still in place. There is mild sanguinous drainage on the dressings but no purulence or active bleeding. There is some venous congestion and hyperemia around the eponychial but no bartolo erythema. No fluctuance. A: 1. Postoperative day #1 status post incision and drainage of left small finger paronychia/eponychia 2. Nicotine addiction P: The finger is looking much better. We discussed the intraoperative findings. Cultures are still pending but I explained that they may not grow anything, given how long he has been on antibiotics. Recommended resuming dilute Betadine soaks several times a day. Okay to discharge home today from an orthopedic standpoint. He was instructed to schedule a follow-up appointment with a in 7-10 days and to call sooner if he experiences any problems or concerns. Shashi Berg D.O. [facility]
[2019-02-02] MEDS ORDERED: HYDROcodone/APAP 10-325MG 1 EACH TAB PO PRN (12:11)
--- NOTE | 2019-02-02 14:51 | PN ---
PROGRESS NOTE DATE OF SERVICE: 02/02/2019 REASON FOR FOLLOWUP: Left fifth finger paronychia and possible ostium. INTERVAL HISTORY: The patient did have more drainage of the paronychia of the left fifth finger. Patient tolerated the procedure. The patient denies having any chest pain, shortness of breath. No nausea, no vomiting. No abdominal pain, no diarrhea. PHYSICAL EXAMINATION: Blood pressure 118/60 with a pulse of 55, temperature 98.4, he he is 94% on room air. General description is a middle-aged male up in the room in no distress. RESPIRATORY SYSTEM: Unlabored breathing, clear to auscultation anteriorly. HEART: S1, S2. Regular rate and rhythm. The left fifth fingertip with swelling and tenderness, some drainage. LABS: Culture done yesterday has been pending so far. DIAGNOSTIC IMPRESSION AND PLAN: Patient with left fifth finger with paronychia and possible ostium, status post OR debridement yesterday. Cultures are currently pending. Patient insisting on going home. Antibiotic currently for Rocephin 2 g daily to continue for 4 weeks with close outpatient followup. MMODL / IJN: [id number] /
--- NOTE | 2019-02-03 00:02 | P.DS ---
Providers Date of admission: 01/28/19 14:23 Expected date of discharge: 02/02/19 Attending physician: Gonzalez Galloway Consults: 01/26/19 18:45 Consult Physician Routine Consulting Provider: Emmanuel Dewitt Consult Reason/Comments: infection Do you want consulting provider notified?: Yes 01/26/19 18:47 Consult Physician Routine Consulting Provider: Segundo Elena Consult Reason/Comments: Finger infection Do you want consulting provider notified?: Yes Primary care physician: Syeda Hendricks [place] Hospital Course: Hospital course: This is a 48-year-old patient of Dr. Hendricks. Chronic stable medical conditions include chronic mastoiditis, permanent pacemaker for sick sinus syndrome, COPD from smoking. About 3 weeks ago patient woke up and felt what was like a mosquito bite on the tip of his little finger. This progressed become painful swollen went down to [facility]. It was incised. Sent home with antibiotics. It swelled up again. Patient went to his family doctor. It was again incised and patient was sent over Bactrim. It swelled of yet again. Patient went to [facility]. Admitted there for 3 days A PICC line and IV vancomycin was given. Patient seen by Dr. Dewitt from [place]. It improved but yet again it has swollen up again's painful throbbing. No obvious fever no obvious chills. Patient seen by Dr. Dewitt from [place] and sent him to be admitted. Patient was started on IV daptomycin. Bedside I&D was initially done. Then patient is taken to the OR for open I&D. Wound was all cleaned out. Consultation: Dr. Dewitt from [place] [facility] including Dr. Helm Physical examination: VITAL SIGNS: 98.4, 55, 20, 118/68, 94% room air GENERAL: Sitting up, comfortable EYES: Pupils equal. Conjunctiva normal. HEENT: External appearance of nose and ears normal, oral cavity grossly normal. NECK: JVD not raised; masses not palpable. HEART: First and second heart sounds are normal; no edema. LUNGS: Respiratory rate normal; decreased breath sounds, some wheezing. ABDOMEN: Soft, nontender, liver spleen not palpable, no masses palpable. PSYCH: Alert and oriented x3; mood and affect normal. EXTREMITIES: Left hand distal little finger in a dressing INVESTIGATIONS, reviewed in the clinical context: White count 8.8 hemoglobin 13.9 potassium 4.7 C-reactive protein did come down from 23 down to 9.5 Previous labs Initial cultures Cultures negative from bedside I&D. Letter cultures pending C-reactive protein 23 Discharge diagnosis: -Left little finger, recurrent abscess with associated cellulitis, having failed outpatient incision and drainage at least 2 times and antibiotics. Repeat I&D done on January 29 at bedside, and repeat open I&D done on February 02 -Chronic mastoiditis -Chronic permanent pacemaker for sick sinus syndrome -COPD in a current smoker -Chronic nicotine dependence patient cigarette smoker Disposition: Home Patient Condition at Discharge: Stable Plan - Discharge Summary Discharge Rx Participant: No New Discharge Prescriptions: New Naproxen [Naprosyn] 250 mg PO TID #30 tab cefTRIAXone [Rocephin] 2,000 mg IVP Q24HR #28 vial HYDROcodone/APAP 10-325MG [[place] 10-325] 1 - 2 tab PO Q6HR PRN 3 Days #15 tab PRN Reason: Pain Continue Budesonide/Formoterol Fumarate [Symbicort 160-4.5 Mcg Inhaler] 2 puff INHALATION BID Albuterol Inhaler [Ventolin Hfa Inhaler] 1 puff INHALATION DAILY Umeclidinium [place] [Incruse Ellipta] 1 puff INHALATION DAILY Discontinued DAPTOmycin [Cubicin] 500 mg IV DAILY@1200 Discharge Medication List Albuterol Inhaler [Ventolin Hfa Inhaler] 1 puff INHALATION DAILY 09/29/17 [History] Budesonide/Formoterol Fumarate [Symbicort 160-4.5 Mcg Inhaler] 2 puff INHALATION BID 09/29/17 [History] Umeclidinium [place] [Incruse Ellipta] 1 puff INHALATION DAILY 01/26/19 [Histor y] HYDROcodone/APAP 10-325MG [[place] 10-325] 1 - 2 tab PO Q6HR PRN 3 Days #15 tab 02/02/19 [Rx] Naproxen [Naprosyn] 250 mg PO TID #30 tab 02/02/19 [Rx] cefTRIAXone [Rocephin] 2,000 mg IVP Q24HR #28 vial 02/02/19 [Rx] Follow up Appointment(s)/Referral(s): Syeda Hendricks MD [Primary Care Provider] - 1-2 days (office will call patient to set up appt.) Shashi Berg DO [Medical Doctor] - 02/08/19 8:45 am Emmanuel Dewitt MD [STAFF PHYSICIAN] - 02/08/19 10:15 am Patient Instructions/Handouts: Hydrocodone/Acetaminophen (By mouth), Naproxen (By mouth), Ceftriaxone (By injection), Wound Infection (DC) Activity/Diet/Wound Care/Special Instructions: [facility] [phone], fax number [phone] Orthopedic Discharge Instructions Take off all the dressings tomorrow and remove the drain. Continue soaks every 2 hours in a solution of warm normal saline (or clean water) and dilute Betadine (10:1 ratio). Rinse with plain saline and cover with a clean dressing. Ok to remove dressings and shower/wash hands normally with soap and water. Use the finger as tolerated and encourage frequent range of motion. Call the office or return to ER if there is increased pain, redness or drainage. Call for a follow up outpatient with Dr. Berg to be seen in 7-[address] dewitt Discharge Disposition: HOME WITH HOME HEALTH SERVICES
== END 2019-02-02 16:50 | disposition home health service (06) | DRG 603 ==
LOC: EC 16:52 → 4MS4W 18:44 → 3NMEDONC 01-28 13:42 → OBSVTOIN 01-28 14:23 → 3NMEDONC 01-30 13:10
PROVIDERS: ADMIT Hospitalist; ATTEND Hospitalist
PROC: 0J9K0ZX Drainage of Left Hand Subcutaneous Tissue and Fascia, Open Approach, Diagnostic (ICD-10-PCS; principal; 2019-01-29)
PROC: 0X9K0ZZ Drainage of Left Hand, Open Approach (ICD-10-PCS; 2019-02-01)
DX: L03.012 Cellulitis of left finger (principal); I49.5 Sick sinus syndrome; S61.207A Unspecified open wound of left little finger without damage to nail, initial encounter; J44.9 Chronic obstructive pulmonary disease, unspecified; H70.10 Chronic mastoiditis, unspecified ear; J32.9 Chronic sinusitis, unspecified; Q84.6 Other congenital malformations of nails; F17.210 Nicotine dependence, cigarettes, uncomplicated; Z79.51 Long term (current) use of inhaled steroids; Z79.2 Long term (current) use of antibiotics; Z79.899 Other long term (current) drug therapy; Z71.6 Tobacco abuse counseling; Z87.01 Personal history of pneumonia (recurrent); Z90.49 Acquired absence of other specified parts of digestive tract; Z98.890 Other specified postprocedural states; Z87.09 Personal history of other diseases of the respiratory system; Z95.0 Presence of cardiac pacemaker; Z80.49 Family history of malignant neoplasm of other genital organs; Z80.0 Family history of malignant neoplasm of digestive organs; Z82.62 Family history of osteoporosis; W57.XXXA Bitten or stung by nonvenomous insect and other nonvenomous arthropods, initial encounter
CPT/HCPCS: 36415; 80048; 85025; 85652; 86140; 87040; 87070; 87075; 87102; 87205; 94640; 96374; 96375; 96376; 99284

== ENCOUNTER 2019-02-03 23:00 | Emergency (ER) | payer MEDICARE, OTHER ==
[2019-02-03 23:05] VITALS: RESP 18; TEMP 98.4
[2019-02-03] MEDS ORDERED: SODIUM CHLORIDE 0.9% 1,000 ML IV STA (23:32)
[2019-02-03] MEDS ORDERED: ONDANSETRON 4 MG/2 ML VIAL IVP STA (23:32)
[2019-02-03 23:55] LABS: Basophils # (A) 0.1 k/uL (0-0.2); Basophils % (A) 1 %; Eosinophils # (A) 0.5 k/uL (0-0.7); Eosinophils % (A) 5 %; HCT 46.1 % (39.0-53.0); HGB 15.9 gm/dL (13.0-17.5); Lymphocytes # (A) 3.2 k/uL (1.0-4.8); Lymphocytes % (A) 29 %; MCH 32.5 pg (25.0-35.0); MCHC 34.4 g/dL (31.0-37.0); MCV 94.2 fL (80.0-100.0); Mean Platelet Volume 7.6; Monocytes # (A) 0.8 k/uL (0-1.0); Monocytes % (A) 8 %; Neutrophils % (A) 55 %; Platelet Count 269 k/uL (150-450); RBC 4.89 m/uL (4.30-5.90); RDW 12.8 % (11.5-15.5); WBC 10.8 k/uL (3.8-10.6)
[2019-02-04 00:06] LABS: ALT 42 U/L (21-72); AST 30 U/L (17-59); African American GFR (CKD) >90 (>60 ml/min/1.73 sqM); Albumin 4.7 g/dL (3.5-5.0); Alkaline Phosphatase 119 U/L (38-126); Amylase 33 U/L (30-110); Anion Gap 10 mmol/L; Blood Urea Nitrogen 14 mg/dL (9-20); Calcium 9.8 mg/dL (8.4-10.2); Carbon Dioxide 24 mmol/L (22-30); Chloride 104 mmol/L (98-107); Glucose 101 mg/dL (74-99); Potassium 4.2 mmol/L (3.5-5.1); Sodium 138 mmol/L (137-145); Total Bilirubin 0.4 mg/dL (0.2-1.3); Total Protein 7.9 g/dL (6.3-8.2)
--- NOTE | 2019-02-04 00:17 | XR ---
EXAM: XR Left Finger(s), 2 or More Views CLINICAL HISTORY: Pain TECHNIQUE: Frontal, lateral and oblique views of finger(s) of the left hand. COMPARISON: No relevant prior studies available. FINDINGS: Bones/joints: . No acute fracture or traumatic malalignment. Soft tissues: Unremarkable. No radiopaque foreign body. IMPRESSION: No acute findings.
[2019-02-04] MEDS ORDERED: KETOROLAC 30 MG/ML 1 ML VIAL IVP STA (00:25)
--- NOTE | 2019-02-04 01:18 | ED ---
General Adult HPI - General Chief complaint: Nausea/Vomiting/Diarrhea Stated complaint: Post Op Vomiting Time Seen by Provider: 02/03/19 23:23 Source: patient, RN notes reviewed Mode of arrival: ambulatory Limitations: no limitations - History of Present Illness Initial comments: 48-year-old male with a past medical history bronchiectasis, chronic masto iditis, sinus problems presents to the emergency department for a chief complaint of nausea and vomiting. Patient states he was discharged from the hospital yesterday for a left fifth digit infection where he had multiple incision and drainages and was on IV antibiotics. Patient states he was disc harged home yesterday with a PICC line and IV antibiotics. States that he started taking Andrews and began having nausea and vomiting all day. Denies any abdominal pain whatsoever. Denies diarrhea. Denies any fevers.Patient has no other complaints at this time including shortness of breath, chest pain, abdominal pain, nausea or vomiting, headache, or visual changes. - Related Data Home Medications Medication Instructions Recorded Confirmed Albuterol Inhaler [Ventolin Hfa 1 puff INHALATION DAILY 09/29/17 01/26/19 Inhaler] Budesonide/Formoterol Fumarate 2 puff INHALATION BID 09/29/17 01/26/19 [Symbicort 160-4.5 Mcg Inhaler] Umeclidinium [place] [Incruse 1 puff INHALATION DAILY 01/26/19 01/26/19 Ellipta] Previous Rx's Medication Instructions Recorded HYDROcodone/APAP 10-325MG [Andrews 1 - 2 tab PO Q6HR PRN 3 Days #15 02/02/19 10-325] tab Naproxen [Naprosyn] 250 mg PO TID #30 tab 02/02/19 cefTRIAXone [Rocephin] 2,000 mg IVP Q24HR #28 vial 02/02/19 Ondansetron [Zofran ODT] 4 mg PO Q8HR PRN #15 tab 02/04/19 Allergies Allergy/AdvReac Type Severity Reaction Status Date / Time No Known Allergies Allergy Verified 02/03/19 23:02 Review of Systems ROS Statement: Those systems with pertinent positive or pertinent negative responses have been documented in the HPI. ROS Other: All systems not noted in ROS Statement are negative. Past Medical History Past Medical History: Pneumonia Additional Past Medical History / Comment(s): BRONCHIACTASIS, MASTOIDITIS, sick sinus syndrome,sinus problems History of Any Multi-Drug Resistant Organisms: None Reported Past Surgical History: Cholecystectomy, Hernia Repair, Orthopedic Surgery, Pacemaker Additional Past Surgical History / Comment(s): multiple knee scopes, umb hernia, had had 4 pacemaker sx;. polyp in throat removed 09/06/17, right finger surgery Past Anesthesia/Blood Transfusion Reactions: No Reported Reaction Type of Cardiac Device: Permanent Pacemaker Device Placement Date:: unk Past Psychological History: No Psychological Hx Reported Smoking Status: Current every day smoker Past Alcohol Use History: None Reported Past Drug Use History: None Reported - Past Family History Mother Family Medical History: Cancer Additional Family Medical History / Comment(s): cervical and anal cancer, osteoporosis Father History Unknown: Yes Additional Family Medical History / Comment(s): at age 26 pt not sure what cause was. General Exam Limitations: no limitations General appearance: alert, in no apparent distress Head exam: Present: atraumatic, normocephalic, normal inspection Eye exam: Present: normal appearance, PERRL, EOMI. Absent: scleral icterus, conjunctival injection, periorbital swelling ENT exam: Present: normal exam, mucous membranes moist Neck exam: Present: normal inspection, full ROM. Absent: tenderness, meningismus Respiratory exam: Present: normal lung sounds bilaterally. Absent: respiratory distress, wheezes, rales, rhonchi, stridor Cardiovascular Exam: Present: regular rate, normal rhythm, normal heart sounds. Absent: systolic murmur, diastolic murmur, rubs, gallop, clicks GI/Abdominal exam: Present: soft, normal bowel sounds. Absent: distended, tenderness, guarding, rebound, rigid Neurological exam: Present: alert, oriented X3 Psychiatric exam: Present: normal affect, normal mood Course Vital Signs 02/03/19 23:01 Temperature 98.4 F Pulse Rate 79 Respiratory 18 Rate Blood Pressure 116/82 O2 Sat by Pulse 99 Oximetry Medical Decision Making - Medical Decision Making 48-year-old male presents to the emergency department for a chief complaint of nausea vomiting times one day. Patient was discharged home yesterday after receiving IV antibiotics and incision and drainages of abscess of left fifth digit. States he has been taking Andrews. On exam no abdominal tenderness. Exam is benign. Patient does state he may notice some worsening erythema of the left distal phalanx but is unsure. Therefore x-ray was ordered which showed no acute findings. CBC CMP unremarkable. Mild leukocytosis which is likely reactive s econdary to vomiting. I did discuss with patient possibility of admission if he thinks his anger is becoming worse. Patient refuses a states he wants to follow up with Dr. Carlin tomorrow and continue his PICC line antibiotics. He will return here if he has any worsening symptoms. - Lab Data Result diagrams: 02/03/19 23:46 02/03/19 23:46 Lab Results 02/03/19 02/03/19 Range/Units 23:46 23:46 WBC 10.8 H (3.8-10.6) k/uL RBC 4.89 (4.30-5.90) m/uL Hgb 15.9 (13.0-17.5) gm/dL Hct 46.1 (39.0-53.0) % MCV 94.2 (80.0-100.0) fL MCH 32.5 (25.0-35.0) pg MCHC 34.4 (31.0-37.0) g/dL RDW 12.8 (11.5-15.5) % Plt Count 269 (150-450) k/uL Neutrophils % 55 % Lymphocytes % 29 % Monocytes % 8 % Eosinophils % 5 % Basophils % 1 % Neutrophils # 6.0 (1.3-7.7) k/uL Lymphocytes # 3.2 (1.0-4.8) k/uL Monocytes # 0.8 (0-1.0) k/uL Eosinophils # 0.5 (0-0.7) k/uL Basophils # 0.1 (0-0.2) k/uL Sodium 138 (137-145) mmol/L Potassium 4.2 (3.5-5.1) mmol/L Chloride 104 (98-107) mmol/L Carbon Dioxide 24 (22-30) mmol/L Anion Gap 10 mmol/L BUN 14 (9-20) mg/dL Creatinine 1.00 (0.66-1.25) mg/dL Est GFR (CKD-EPI)AfAm >90 (>60 ml/min/1.73 sqM) Est GFR (CKD-EPI)NonAf 90 (>60 ml/min/1.73 sqM) Glucose 101 H (74-99) mg/dL Calcium 9.8 (8.4-10.2) mg/dL Total Bilirubin 0.4 (0.2-1.3) mg/dL AST 30 (17-59) U/L ALT 42 (21-72) U/L Alkaline Phosphatase 119 (38-126) U/L Total Protein 7.9 (6.3-8.2) g/dL Albumin 4.7 (3.5-5.0) g/dL Amylase 33 (30-110) U/L Lipase 55 (23-300) U/L Disposition Clinical Impression: Nausea and vomiting Disposition: HOME SELF-CARE Condition: Good Instructions (If sedation given, give patient instructions): Acute Nausea and Vomiting (ED) Additional Instructions: Please take zofran as directed. Please follow-up with Dr Carlin tomorrow. Please return to the emergency department if you have any worsening symptoms. Prescriptions: Ondansetron [Zofran ODT] 4 mg PO Q8HR PRN #15 tab PRN Reason: Nausea Is patient prescribed a controlled substance at d/c from ED?: No Referrals: Syeda Hendricks MD [Primary Care Provider] - 1-2 days Time of Disposition: 01:17
[2019-02-04] MEDS ORDERED: ONDANSETRON 4 MG ODT STARTER PACK 2 TAB BTL PO STA (01:33)
[2019-02-04 02:01] VITALS: BP 118/82; PULSE 82
== END 2019-02-04 02:01 | disposition home or self-care (01) ==
LOC: EC 23:00
DX: R11.2 Nausea with vomiting, unspecified (principal); D72.829 Elevated white blood cell count, unspecified; L08.9 Local infection of the skin and subcutaneous tissue, unspecified; F17.200 Nicotine dependence, unspecified, uncomplicated; Z79.51 Long term (current) use of inhaled steroids; Z79.899 Other long term (current) drug therapy; Z87.09 Personal history of other diseases of the respiratory system; Z87.01 Personal history of pneumonia (recurrent); Z90.49 Acquired absence of other specified parts of digestive tract; Z53.29 Procedure and treatment not carried out because of patient's decision for other reasons
CPT/HCPCS: 36415; 80053; 82150; 83690; 85025; 96361; 96374; 96375; 99284

== ENCOUNTER → 2019-12-06 | Outpatient (CLI) | payer MEDICARE, OTHER ==
[2019-12-06 12:41] LABS: African American GFR (CKD) >90 (>60 ml/min/1.73 sqM); Anion Gap 6 mmol/L; Blood Urea Nitrogen 11 mg/dL (9-20); Carbon Dioxide 26 mmol/L (22-30); Chloride 106 mmol/L (98-107); HCT 44.1 % (39.0-53.0); HGB 14.7 gm/dL (13.0-17.5); MCH 32.7 pg (25.0-35.0); MCHC 33.3 g/dL (31.0-37.0); MCV 98.1 fL (80.0-100.0); Mean Platelet Volume 8.9; Non-African American GFR(CKD) >90 (>60 ml/min/1.73 sqM); Platelet Count 248 k/uL (150-450); Potassium 4.9 mmol/L (3.5-5.1); RBC 4.49 m/uL (4.30-5.90); RDW 12.8 % (11.5-15.5); Sodium 138 mmol/L (137-145); WBC 8.3 k/uL (3.8-10.6)
== END | disposition home or self-care (01) ==
LOC: LABPAT 11:19
PROVIDERS: ATTEND Internal Medicine Interventional Cardiology
DX: Z01.818 Encounter for other preprocedural examination (principal); Z11.59 Encounter for screening for other viral diseases; R60.0 Localized edema
CPT/HCPCS: 80051; 82565; 84520; 85027; 36415; U0003

== ENCOUNTER 2019-12-08 05:56 | Day surgery (SDC) | payer MEDICARE, OTHER ==
[2019-12-07 13:33] VITALS: BMI 34.2
[~2019-12-08 05:56] MED LIST: ALPRAZolam 0.25 MG TAB PO PRN; ASPIRIN 325 MG TAB PO STA; SODIUM CHLORIDE 0.9% 1,000 ML in EMPTY BAG 1 BAG IV ONE
[2019-12-08 06:31] VITALS: RESP 16; TEMP 98.1
[2019-12-08] MEDS ORDERED: SODIUM CHLORIDE 0.9% 1,000 ML IV ONE (06:31)
[2019-12-08] MEDS ORDERED: HYDROmorphone 1 MG/ML 1 ML SYRINGE IVP ONE (07:40)
[2019-12-08] MEDS ORDERED: LIDOCAINE 1% INJ 10MG/ML (20 ML MDV) SQ ONE ×2 (07:40→07:45)
[2019-12-08] MEDS ORDERED: MIDAZOLAM 2 MG/2 ML VIAL IVP ONE ×2 (07:40→07:45)
[2019-12-08] MEDS ORDERED: IOPAMIDOL-250 100ML BTL INTRAARTER ONE (08:12)
[2019-12-08] MEDS ORDERED: SODIUM CHLORIDE 0.9% 1,000 ML IV SCH (08:15)
--- NOTE | 2019-12-08 08:23 | P.PCN ---
Date of Procedure: 12/08/19 Operative Findings: Diagnostic peripheral angiogram Performing physician Julian pSarks MD, RPVI Procedure performed An angiogram of the inferior vena cava, bilateral common and external iliac veins, and bilateral common femoral veins Intravascular ultrasound (IVUS) of the inferior vena cava, bilateral common and external iliac veins, on bilateral common femoral veins Indication This is a 49-year-old gentleman who was a struggling was bilateral lower extremities edema. He underwent noninvasive workup and that came in to be unremarkable. Because of that he was brought today to undergo an angiogram and intravascular ultrasound to check the iliac and femoral veins. Approach Right and left common femoral veins Complications None Level of sedation Moderate sedation length of 25 minutes Procedure description After obtaining an informed consent the patient was brought to the cardiac labels molder. I did cannulate the right and left common femoral veins using micropuncture technique under ultrasound guidance, the micropuncture wire passed easily then I placed 6-Peruvian sheath at the right and left common femoral veins. Subsequently an angiogram was performed with injection through the sheath bilaterally. After that I did performed intravascular ultrasound of the inferior vena cava, bilateral common and external iliac veins, and bilateral common femoral veins. That was performed over an 035 wire after I did pull the 6-Peruvian sheath out and I went sheathless. The procedure was completed without any complications Finding by angiogram The angiogram revealed what it seems to be concerning/tight lesions involving the junction between the common femoral vein and external iliac veins bilaterally. Finding by IVUS Inferior vena cava The area stenosis is 0% Common iliac veins On the right area stenosis is 46% (the reference area is 180 mm and the compressed area is 101 mm) On the left area stenosis is 54% (the reference area is 196 mm and the area stenosis is 89 mm) External iliac veins On the right area stenosis is 54% (the reference area is 133 mm and the area stenosis 61 mm) On the left area stenosis 60% (the reference area is 135 mm and the area stenosis is 52 mm) Common femoral veins On the right area stenosis is 0% (the reference area is 158 mm and area stenosis is 158 mm) On the left area stenosis is 0% (the reference area is 118 mm and the area stenosis is 118 mm) Conclusion 1. 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 Severe stenosis involving bilateral external iliac veins Postprocedure management 1. Stenting of the left common iliac vein 2. Stenting of bilateral external iliac veins
[2019-12-08] MEDS ORDERED: ACETAMINOPHEN TAB 325 MG TAB PO PRN (09:02)
--- NOTE | 2019-12-08 09:08 | IR ---
Fluoroscopy HISTORY: Pain in bilateral legs 0.6 minutes fluoroscopy time supplied to the referring clinician. 15 intraoperative C-arm images doc ument the procedure. See dictated report from cardiology.
[2019-12-08] MEDS ORDERED: HYDROmorphone 0.5 MG/0.5 ML SYRINGE IVP PRN (10:53)
[2019-12-08 12:58] VITALS: BP 118/65; PULSE 78
== END 2019-12-08 13:38 | disposition home or self-care (01) ==
LOC: CATHCVL 05:56
PROVIDERS: ATTEND Internal Medicine Interventional Cardiology
DX: I87.1 Compression of vein (principal); I49.5 Sick sinus syndrome; Z87.891 Personal history of nicotine dependence; Z95.0 Presence of cardiac pacemaker; Z79.82 Long term (current) use of aspirin; Z79.51 Long term (current) use of inhaled steroids; Z79.899 Other long term (current) drug therapy
CPT/HCPCS: 36010; 75825; 37252; 37253; C1769 ×3; C1894; C1753; J2250; J2001; J1170; Q9966

== ENCOUNTER → 2020-01-10 | Outpatient (CLI) | payer MEDICARE, OTHER ==
[2020-01-10 11:25] LABS: HCT 47.4 % (39.0-53.0); HGB 15.7 gm/dL (13.0-17.5); MCH 32.1 pg (25.0-35.0); MCHC 33.2 g/dL (31.0-37.0); MCV 96.7 fL (80.0-100.0); Mean Platelet Volume 8.7; Platelet Count 245 k/uL (150-450); RDW 12.5 % (11.5-15.5); WBC 8.1 k/uL (3.8-10.6)
[2020-01-10 11:56] LABS: African American GFR (CKD) >90 (>60 ml/min/1.73 sqM); Anion Gap 6 mmol/L; Blood Urea Nitrogen 10 mg/dL (9-20); Carbon Dioxide 26 mmol/L (22-30); Chloride 107 mmol/L (98-107); Non-African American GFR(CKD) >90 (>60 ml/min/1.73 sqM); Potassium 4.4 mmol/L (3.5-5.1); Sodium 139 mmol/L (137-145)
== END | disposition home or self-care (01) ==
LOC: LABPAT 10:23
PROVIDERS: ATTEND Internal Medicine Interventional Cardiology
DX: Z01.818 Encounter for other preprocedural examination (principal); R60.0 Localized edema
CPT/HCPCS: 36415; 80051; 82565; 84520; 85027

== ENCOUNTER → 2020-01-12 | Day surgery (SDC) | payer MEDICARE, OTHER ==
[2020-01-10 16:25] VITALS: BMI 33.6
[~2020-01-12] MED LIST changes: -ALPRAZolam 0.25 MG TAB PO PRN; -ASPIRIN 325 MG TAB PO STA; +HEPARIN SODIUM 1,000 UN/ML (10ML VL) IV ONE; +HYDROmorphone 1 MG/ML 1 ML SYRINGE IVP PRN; +HYDROmorphone 1 MG/ML 1 ML SYRINGE ONE; +IOPAMIDOL-250 50ML BTL IV ONE; +LIDOCAINE 1% INJ 10MG/ML (20 ML MDV) SQ ONE; +MIDAZOLAM 2 MG/2 ML VIAL IV ONE; +SODIUM CHLORIDE 0.9% 1,000 ML IV ONE; -SODIUM CHLORIDE 0.9% 1,000 ML in EMPTY BAG 1 BAG IV ONE
[2020-01-12 06:54] VITALS: RESP 18; TEMP 98.2
[2020-01-12] MEDS: fentaNYL (PF) 50 MCG/ML 2 ML AMP IV ONE ×2 (07:53→08:21)
--- NOTE | 2020-01-12 10:00 | AN ---
ANGIOGRAPHY REPORT DATE OF SERVICE: 01/12/2020. PERFORMING PHYSICIAN: Julian Sparks MD. PROCEDURE PERFORMED: 1. An intravascular ultrasound of by of inferior vena cava, bilateral common iliac veins, bilateral external iliac veins, and bilateral common femoral veins. 2. An angiogram of the inferior vena cava, bilateral common iliac veins, bilateral external iliac veins, and bilateral common femoral veins. INDICATION: This is a 49-year-old gentleman who continues to have severe bilateral lower extremities edema in spite of maximized medical treatment. He underwent in the past intravascular ultrasound of the iliac and femoral veins and that revealed severe stenosis involving the bilateral external iliac veins. He was brought in today to undergo an intervention. APPROACH: Right and left common femoral veins. COMPLICATION: None. LEVEL OF SEDATION: Moderate with sedation length of 45 minutes. PROCEDURE DESCRIPTION: After obtaining an informed consent, the patient was brought to the cardiac corn lab technician. The right and left common femoral veins were cannulated using micropuncture technique under ultrasound guidance, the micropuncture wire passed easily, then I placed a 10- Spanish sheath in both femoral veins. Subsequently, anticoagulation was initiated using heparin and the patient was given a total of units of heparin IV. After that I did put a 0.35 Amplatzer wire in both sheath and the wire was advanced all the way to the inferior vena cava. I did an angiogram of the right and left sides. Subsequently, intravascular ultrasound was performed and that revealed patent inferior vena cava with patent bilateral common iliac veins and bilateral external iliac veins with severe compression involving the common femoral veins bilaterally with possible clot involving the left external iliac vein and left common femoral veins. Because of that, the procedure of stenting was supported and the patient will be started on anticoagulation. CONCLUSION: 1. Severe compression involving the right and left common femoral veins. 2. Possible thrombus involving the left external iliac vein and left common femoral vein. POSTPROCEDURE MANAGEMENT: 1. The patient will be started on oral anticoagulation. 2. He will be brought back in about 4-6 weeks to check the presence of thrombus and possible stenting of both common femoral veins. MMODL / IJN: [id number] /
[2020-01-12 15:33] VITALS: BP 109/59; PULSE 74
--- NOTE | 2020-01-12 16:09 | IR ---
EXAMINATION TYPE: IR venogram lower ext BILAT DATE OF EXAM: 01/12/2020 COMPARISON: IR venogram lower extremity bilaterally 12/08/2019 HISTORY: Venous compression TECHNIQUE: Fluoroscopy. FINDINGS: Fluoroscopic guidance was provided during procedure performed by Dr. Sparks. A total of 4.3 minutes of fluoroscopic time was utilized during the procedure and 85 total images were acquired. Se e dictated operative note. IMPRESSION: As Above.
== END ==
LOC: CATHCVL 06:18
PROVIDERS: ATTEND Internal Medicine Interventional Cardiology
DX: I87.1 Compression of vein (principal); I49.5 Sick sinus syndrome; Z79.82 Long term (current) use of aspirin; Z79.51 Long term (current) use of inhaled steroids; Z79.899 Other long term (current) drug therapy; Z95.0 Presence of cardiac pacemaker
CPT/HCPCS: 75825; 85347; 37252; 37253; C1894 ×2; C1769 ×4; C1753; J2250; J2001; J3010; J1644; J1170; Q9966

== ENCOUNTER → 2023-04-29 | Outpatient (CLI) | payer MEDICARE ==
[2023-04-29 13:22] LABS: Basophils # (A) 0.1 k/uL (0-0.2); Basophils % (A) 1 %; Eosinophils # (A) 0.3 k/uL (0-0.7); Eosinophils % (A) 2 %; HCT 48.2 % (39.0-53.0); HGB 16.5 gm/dL (13.0-17.5); Lymphocytes # (A) 2.9 k/uL (1.0-4.8); Lymphocytes % (A) 25 %; MCHC 34.2 g/dL (31.0-37.0); MCV 96.5 fL (80.0-100.0); Mean Platelet Volume 11.7; Monocytes # (A) 0.7 k/uL (0-1.0); Monocytes % (A) 6 %; Neutrophils # (A) 7.2 k/uL (1.3-7.7); Neutrophils % (A) 64 %; Platelet Count 219 k/uL (150-450); RBC 4.99 m/uL (4.30-5.90); RDW 12.9 % (11.5-15.5); WBC 11.3 k/uL (3.8-10.6)
[2023-04-29 17:26] LABS: Total Eosinophil Count 249 #EOS/uL (150-300)
[2023-04-29 19:08] LABS: ALT 21 U/L (10-49); AST 21 U/L (14-35); Albumin 4.7 d/dL (3.8-4.9); Albumin/Globulin Ratio 1.74 Ratio (1.60-3.17); Alkaline Phosphatase 127 U/L (41-126); BUN/Creat Ratio 9.27 Ratio (12.00-20.00); Blood Urea Nitrogen 10.2 mg/dL (9.0-27.0); Calcium 10.1 mg/dL (8.7-10.3); Carbon Dioxide 23.9 mmol/L (21.6-31.8); Chloride 102 mmol/L (96-109); Globulin 2.7 d/dL (1.6-3.3); Glucose 87 mg/dL (70-110); Potassium 4.6 mmol/L (3.5-5.5); Sodium 139 mmol/L (135-145); Total Bilirubin 0.4 mg/dL (0.3-1.2); Total Protein 7.4 d/dL (6.2-8.2)
[2023-04-29 22:30] LABS: Alternaria alternata IgE <0.10 kU/L; Aspergillus fumagatus IgE 0.46 kU/L; Birch IgE <0.10 kU/L; Cat Epith & Dander IgE <0.10 kU/L; Cladosporian herbarum IgE <0.10 kU/L; Cockroach IgE <0.10 kU/L; Dermato. farinae IgE <0.10 kU/L; Dog Dander IgE <0.10 kU/L; Elm IgE <0.10 kU/L; Maple (Box Elder) IgE <0.10 kU/L; Oak IgE <0.10 kU/L; Ragweed,Common IgE <0.10 kU/L; Red Top (Bentgrass) IgE <0.10 kU/L
== END | disposition home or self-care (01) ==
LOC: LABWHC1 11:17
PROVIDERS: ATTEND Internal Medicine Critical Care Medicine
DX: R05.3 Chronic cough (principal)
CPT/HCPCS: 36415; 80053; 82785; 85008; 85025; 86003

== ENCOUNTER → 2024-02-19 | Outpatient (CLI) | payer BC, MEDICARE ==
--- NOTE | 2024-03-09 09:55 | CT ---
Patient: Carlos Hurtado Ordering Physician: Unknown, Unknown ID: [id number] Phone, Pager: Phone: N/A Pager: N/A : [phone] Age/Gender: 53Y, M Primary Location: N/A Procedure: CT SINUS WO CONTRAST S jaisondy Date: 02/19/2024 11:04:00 AM EXAMINATION TYPE: CT sinus wo con DATE OF EXAM: 02/19/2024 COMPARISON: 10/23/2015 HISTORY: Asthma COPD CT DLP: 658.50 mGycm CONTRAST: 0 mL of Isovue 300 The paranasal sinuses are examined in the axial plane at 2 mm thick sections. Reconstructed images i n the coronal plane were obtained. There is dental amalgam scatter artifact Some mild mucosal thickening is present through the left maxillary sinus. The ethmoid air cells are clear. The sphenoid sinuses are clear. There is mild mucosal thickening within the left frontal sin us extending into the foramen. No suspicious air-fluid levels are evident. The septum is evaluated. There is minimal septal deviation to the left. The ostiomeatal units are patent. Some mucosal thickening may be present within the right hiatus semi lunaris without obstruction although some narrowing should be considered. Narrowing of the left ostio meatal unit may also be present. Fluid is within the bilateral middle ears. Correlate for otitis media. Fluid is within the bilateral mastoid air cells. Correlate for acute mastoiditis. IMPRESSION: 1. Mild mucosal thickening left frontal sinus and left maxillary sinus. 2. Fluid within the middle ears and bilateral mastoid air cells. Correlate for bilateral otitis media and bilateral mastoiditis.
--- NOTE | 2024-03-09 16:39 | CT ---
Patient: Carlos Hurtado Ordering Physician: Unknown, Unknown ID: [id number] Phone, Pager: Phone: N/A Pager: N/A : [phone] Age/Gender: 53Y, M Primary Location: N/A Study Date: 02/19/2024 11:04:00 AM EXAMINATION TYPE: CT chest w con DATE OF EXAM: 02/19/2024 COMPARISON: None HISTORY: Asthma CT DLP: 658.50 mGycm, Automated exposure control for dose reduction was used. CONTRAST: Performed injected with 100 mL of Isovue 300. TECHNIQUE: Axial images were obtained at 5 mm thick sections. Reconstructed images are reviewed on [employer] computer in the coronal plane. FINDINGS: Portion of the thyroid visualized is normal. No suspicious lung nodules or focal infiltrates are present. There is a 1.4 cm aortopulmonic window lymph node present. There is a 1.7 cm subcarinal lymph node pr esent. Additional shotty lymphadenopathy is present. The ascending aorta diameter at the level of the main pulmonary artery is 3.8 cm. The main pulmonary artery diameter at the bifurcation is 3.[address] sections are obtained through the upper abdomen. Abdomen is essentially unremarkable. IMPRESSION: 1. Enlarged aortopulmonic window and subcarinal lymphadenopathy with additional shotty lymphadenopath y.
== END | disposition home or self-care (01) ==
LOC: RADCTMAIN 11:30
PROVIDERS: ATTEND Internal Medicine Critical Care Medicine
DX: J44.89 Other specified chronic obstructive pulmonary disease (principal); J34.89 Other specified disorders of nose and nasal sinuses; R59.0 Localized enlarged lymph nodes
CPT/HCPCS: 70486; 71260